=== PATIENT | female | born 1975 | race Caucasian/White ===

== ENCOUNTER 2017-01-20 10:19 | Emergency (ER) | payer OTHER ==
[2017-01-20 10:24] VITALS: BP 123/72; PULSE 96; TEMP 98; BMI 31.8
[2017-01-20] MEDS ORDERED: diazePAM 5 MG TABLET PO ONE (10:46)
[2017-01-20] MEDS ORDERED: IBUPROFEN 400 MG TABLET (FP) PO ONE ×2 (10:46→10:47)
[2017-01-20] MEDS ORDERED: diazePAM 5 MG TABLET ONE (10:47)
--- NOTE | 2017-01-20 10:55 | PDOC ---
History of Present Illness - General Chief Complaint: Pain Stated Complaint: BACK PAIN Time Seen by Provider: 01/20/17 10:28 History Source: Patient - History of Present Illness Occurred: reports: this morning Severity: reports: severe Method of Injury: Yes: fall Past History - Past Medical History Allergies/Adverse Reactions: Allergies Allergy/AdvReac Type Severity Reaction Status Date / Time levofloxacin [From Levaquin] Allergy Intermediate Rash Verified 01/20/17 10:25 Home Medications: Ambulatory Orders Ibuprofen [Motrin -] 800 mg PO Q6H #30 tablet 01/20/17 Tramadol HCl 50 mg PO Q6H #15 tablet MDD 200 mg 01/20/17 Anemia: Yes Asthma: Yes Psychiatric Problems: Yes (depression) Suicide Attempt (Hx): No - Surgical History Abdominal Surgery: Yes (hernia) - Immunization History Immunization Up to Date: No - Psycho/Social/Smoking Cessation Hx Anxiety: No Suicidal Ideation: No Smoking History: Never smoked Have you smoked in the past 12 months: Yes Number of Cigarettes Smoked Daily: 2 Information on smoking cessation initiated: No 'Breaking Loose' booklet given: 02/05/16 Hx Alcohol Use: No Drug/Substance Use Hx: No Substance Use Type: None Hx Substance Use Treatment: No Trauma Specific PMHX - Complaint Specific PMHX Back Injury: Yes Neck Injury: Yes Review of Systems - Review of Systems Musculoskeletal: Yes: Back Pain. No: Neck Pain Neurological: No: Headache, Numbness, Weakness, Dizziness *Physical Exam - Vital Signs Last Vital Signs Temp Pulse Resp BP Pulse Ox 98 F 96 H 18 123/72 99 01/20/17 10:21 01/20/17 10:21 01/20/17 10:21 01/20/17 10:21 01/20/17 10:21 - Physical Exam General Appearance: Yes: Appropriately Dressed, Mild Distress HEENT: positive: Normal Voice Neck: positive: Supple Respiratory/Chest: negative: Respiratory Distress Gastrointestinal/Abdominal: positive: Soft. negative: Tender Musculoskeletal: positive: Vertebral Tenderness (to thoracic and lumbar sacral spine). negative: CVA Tenderness Extremity: positive: Normal Inspection Integumentary: positive: Dry, Warm Neurologic: positive: Fully Oriented, Alert, Normal Mood/Affect Medical Decision Making - Medical Decision Making 01/20/17 10:47 41 yo F, pre-DM, 41-year-old female, chronic LBP, here w/ worsening of pain after fall this am. Pt states she slipped in slower but was able to break fall and suffered no impact to her back but did hit head, no LOC, CHANG, dizziness, n/v and not on any blood thinners. Only c/o pain to thoracic and LS spine. No radiation of pain and no LE weakness, b/b incontinence or saddle anesthesia. Has not taken anything for pain. Pt appears mildly uncomfortable with reproducible tenderness to thoracic and lumbar sacral spine, no red flags at this time. Most likely musculoskeletal. Pain control in ED and reassess 01/20/17 11:56 Patient reports improvement in pain and currently stable for discharge *DC/Admit/Observation/Transfer Diagnosis at time of Disposition: Back injury Qualifiers: Encounter type: initial encounter Qualified Code(s): S39.92XA - Unspecified injury of lower back, initial encounter - Discharge Dispostion Disposition: HOME Condition at time of disposition: Improved - Prescriptions Prescriptions: Ibuprofen [Motrin -] 800 mg PO Q6H #30 tablet Tramadol HCl 50 mg PO Q6H #15 tablet MDD 200 mg - Patient Instructions Printed Discharge Instructions: Low Back Pain Additional Instructions: Take medication as directed and follow up with PMD
== END 2017-01-20 12:14 | disposition home or self-care (01) ==
LOC: JERFT 10:19
DX: S39.92XA Unspecified injury of lower back, initial encounter (principal); W18.2XXA Fall in (into) shower or empty bathtub, initial encounter; Y93.E1 Activity, personal bathing and showering; Y92.031 Bathroom in apartment as the place of occurrence of the external cause
CPT/HCPCS: 99281-25

== ENCOUNTER 2017-03-16 09:53 | Emergency (ER) | payer OTHER ==
[2017-03-16 09:58] VITALS: TEMP 97.7; BMI 33.6
--- NOTE | 2017-03-16 11:12 | PDOC ---
History of Present Illness - General History Source: Patient Exam Limitations: No Limitations - History of Present Illness Initial Comments: 03/16/17 11:34 The patient is a 42 year old female with a significant past medical history of pre-diabetes, asthma, anemia, depression, chronic left low back pain, chronic C- spine pain, and cigarette smoking, presenting to the Emergency Department with left chest tightness and back pain since yesterday. She reports that yesterday she began feeling a tightness in her chest when breathing, and difficulty breathing secondary to the tightness. She reports that today she has left sided chest pain, as well as left sided back pain, exacerbated by breathing or by lifting her left arm. She also reports heart palpitations. She states that she is a smoker, and is short of breath on exertion normally, though it is more exacerbated now. She admits to chronic left lower abdominal pain being followed by a gyno, as well as chronic C-spine pain being managed with injections. Her last injection was in September. She admits that she is prescribed oxycodone for her chronic back pain though she ran out of pills. The patient denies fever, cough, and chills. Patient denies urinary frequency, urgency, and dysuria. Patient denies headache, dizziness, and loss of consciousness. Patient denies diaphoresis. PCP: Dr. Hugo Myers Hx: every day cigarette smoker Surgical Hx: 3x last 2006 <Suzie Mccullough - Last Filed: 03/16/17 14:16> <Tutu Singh - Last Filed: 03/16/17 14:23> - General Chief Complaint: Chest Pain Stated Complaint: CHEST PAIN, BACK PAIN Time Seen by Provider: 03/16/17 11:09 Past History <Suzie Mccullough - Last Filed: 03/16/17 14:16> - Past Medical History Anemia: Yes Asthma: Yes Psychiatric Problems: Yes (depression) Suicide Attempt (Hx): No - Surgical History Abdominal Surgery: Yes (hernia) - Immunization History Immunization Up to Date: No - Psycho/Social/Smoking Cessation Hx Anxiety: No Suicidal Ideation: No Smoking History: Never smoked Have you smoked in the past 12 months: Yes Number of Cigarettes Smoked Daily: 2 'Breaking Loose' booklet given: 02/05/16 Hx Alcohol Use: No Drug/Substance Use Hx: No Substance Use Type: None Hx Substance Use Treatment: No <АлександрrosanaDavyTutu - Last Filed: 03/16/17 14:23> - Past Medical History Allergies/Adverse Reactions: Allergies Allergy/AdvReac Type Severity Reaction Status Date / Time levofloxacin [From Levaquin] Allergy Intermediate Rash Verified 03/16/17 09:58 Home Medications: Ambulatory Orders Oxycodone HCl/Acetaminophen [Percocet 5-325 mg Tablet] 1 - 2 tab PO Q6H PRN #10 tab MDD 8 03/16/17 Review of Systems - Review of Systems Constitutional: No: Chills, Fever HEENTM: No: Nose Congestion, Throat Pain Respiratory: Yes: Shortness of Breath, SOB with Exertion. No: Cough Cardiac (ROS): Yes: Chest Pain. No: Edema, Lightheadedness ABD/GI: Yes: Diarrhea, Vomiting : No: Dysuria, Frequency Musculoskeletal: Yes: Back Pain (chronic cervical radiculopathy), Muscle Pain All Other Systems: Reviewed and Negative <АлександрjuanDavy jacobsTutu - Last Filed: 03/16/17 14:23> *Physical Exam - Vital Signs Last Vital Signs Temp Pulse Resp BP Pulse Ox 97.7 F 101 H 20 141/72 99 03/16/17 09:55 03/16/17 09:55 03/16/17 09:55 03/16/17 09:55 03/16/17 09:55 - Physical Exam Comments: 03/16/17 11:37 GENERAL: The patient is awake, alert, and fully oriented, in no acute distress. HEAD: Normal with no signs of trauma. EYES: Pupils equal, round and reactive to light, extraocular movements intact, sclera anicteric, conjunctiva clear with no pallor. ENT: Ears normal, nares patent, oropharynx clear without exudates. Moist mucous membranes. NECK: Normal range of motion, supple without lymphadenopathy, JVD, or masses. LUNGS: Breath sounds equal, clear to auscultation bilaterally. No wheeze/ crackles. HEART: Regular rate and rhythm, normal S1 and S2 without murmur or rub. ABDOMEN: Discomfort to palpation at upper chest and back and around left shoulder. Chronic pain to left lateral abdomen to palpation but otherwise soft and nondistended. BS wnl. No guarding or rebound. No palpable masses. No hepatosplenomegaly. EXTREMITIES: Full ROM of upper extremities but painful. No pitting edema to lower extremities. No calf tenderness. No clubbing or cyanosis. No cords, erythema, or tenderness. NEUROLOGICAL: Cranial nerves II through XII grossly intact. Normal speech, normal gait. PSYCH: Normal mood, normal affect. SKIN: Warm, Dry, normal turgor, no rashes or lesions noted. <Suzie Mccullough - Last Filed: 03/16/17 14:16> - Vital Signs Last Vital Signs Temp Pulse Resp BP Pulse Ox 97.7 F 101 H 20 141/72 99 03/16/17 09:55 03/16/17 09:55 03/16/17 09:55 03/16/17 09:55 03/16/17 09:55 <Tutu Singh - Last Filed: 03/16/17 14:23> Heart Score/ECG Review #1 ECG reviewed & interpreted by me at: 12:16 General ECG Interpretation: Sinus Rhythm, Normal Rate (75), Normal Intervals ( LVH), No acute ischemic changes <Tutu Singh - Last Filed: 03/16/17 14:23> ED Treatment Course - LABORATORY CBC & Chemistry Diagram: 03/16/17 11:45 03/16/17 11:45 - RADIOLOGY Radiograph Interpretation: 03/16/17 14:16 Chest XRay As reviewed by Dr. Green IMPRESSION: Cardiac silhouette upper limits of normal size. <Suzie Mccullough - Last Filed: 03/16/17 14:16> - LABORATORY CBC & Chemistry Diagram: 03/16/17 11:45 03/16/17 11:45 <Tutu Singh - Last Filed: 03/16/17 14:23> Medical Decision Making - Medical Decision Making 03/16/17 11:28 A portion of this note was documented by scribe services under my direction. I have reviewed the details of the note, within reason, and agree with the documentation with the following case summary and management plan written by me. 42-year-old female presented diabetic, chronic cervical radiculopathy with occasional steroid injections last performed in September, baseline exertional dyspnea of 1 block presents with pleuritic left chest and upper back discomfort for one day, and an exacerbation of her otherwise chronic left low back pain in the setting of running out of her opiates. Vital signs normal. Bedside heart rate 88 with O2 sat 99% on room air Reproducible discomfort to palpation in the upper left chest and back, lung sounds are otherwise clear No leg edema or calf tenderness 42-year-old female with acute on chronic pain syndrome, also with pleuritic component. Has no clear risk factors or signs/symptoms of PE, would be considered low risk overall. Atypical for ACS, rule out infectious process. Labs including d-dimer Chest x-ray, EKG Pain control reassess 03/16/17 12:39 labs wnl, trop negative, baseline mild anemia. DDimer pending. Urine preg negative, CXR ordered. 03/16/17 13:50 d-dimer negative. awaiting cxr and dispo. Pain resolved after toradol, feels much better. 03/16/17 14:19 CXR clear. agrees with d/c plan, will fill 2d of her chronic meds before she can see her PCP. understands return criteria. <Tutu Singh - Last Filed: 03/16/17 14:23> *DC/Admit/Observation/Transfer - Attestations Scribe Attestion: 03/16/17 11:39 Documentation prepared by Suzie Mccullough, acting as medical interpreter for Tutu Singh MD. <Suzie Mccullough - Last Filed: 03/16/17 14:16> <Tutu Singh - Last Filed: 03/16/17 14:23> Diagnosis at time of Disposition: Atypical chest pain - Discharge Dispostion Disposition: HOME Condition at time of disposition: Improved - Prescriptions Prescriptions: Oxycodone HCl/Acetaminophen [Percocet 5-325 mg Tablet] 1 - 2 tab PO Q6H PRN #10 tab MDD 8 PRN Reason: Pain - Referrals Referrals: Mart Arias MD [Primary Care Provider] - - Patient Instructions Printed Discharge Instructions: DI for Atypical Chest Pain Additional Instructions: Activity as tolerated. Stay hydrated. Tylenol 1000 mg every 8 hours and/or ibuprofen 600 mg every 8 hours as needed for moderate pain. percocet as prescribed as needed for severe pain. Continue your medications as previously prescribed by your physician. You should follow up with your primary doctor as soon as possible regarding today's emergency department visit. Return to the emergency department for any new or concerning symptoms, particularly persistent or worsening pain, difficulty breathing, fever/chills.
[2017-03-16] MEDS ORDERED: SODIUM CHLORIDE 1,000 ML IV ONE (11:26)
[2017-03-16] MEDS ORDERED: morphine CARPU-JECT 4 MG/1 ML DISP.SYRIN IVPUSH ONE (11:26)
[2017-03-16] MEDS ORDERED: morphine CARPU-JECT 4 MG/1 ML DISP.SYRIN ONE (11:42)
[2017-03-16 11:54] LABS: BASOPHIL 0.5 % (0-2.0); EOSINOPHIL 0.5 % (0-4.5); MCH 22.6 pg (25.7-33.7); MCHC 31.3 g/dl (32.0-36.0); MEAN PLT VOLUME 8.1 fl (7.5-11.1); NEUTROPHILS 77.9 % (42.8-82.8); PLATELET COUNT 273 K/MM3 (134-434); RDW 17.1 % (11.6-15.6); WHITE BLOOD COUNT 12.1 K/mm3 (4.0-10.0)
[2017-03-16 11:57] LABS: URINE APPEARANCE CLEAR; URINE BILIRUBIN NEGATIVE (NEGATIVE); URINE BLOOD NEGATIVE (NEGATIVE); URINE COLOR LTYELLOW; URINE GLUCOSE (UA) NEGATIVE (NEGATIVE); URINE KETONE NEGATIVE (NEGATIVE); URINE LEUK ESTERASE NEGATIVE (NEGATIVE); URINE NITRITE NEGATIVE (NEGATIVE); URINE PROTEIN NEGATIVE (NEGATIVE); URINE UROBILINOGEN NEGATIVE E.U./dl (0.2-1.0)
[2017-03-16] MEDS ORDERED: KETOROLAC TROMETHAMINE 30 MG/1 ML VIAL IVPUSH ONE (12:02)
[2017-03-16 12:20] LABS: INR 0.99 (0.82-1.09)
[2017-03-16 12:23] LABS: ALBUMIN 3.7 g/dl (3.4-5.0); ANION GAP 7 (8-16); BILIRUBIN,TOTAL 0.2 mg/dL (0.2-1.0); CALCIUM 9.1 mg/dL (8.5-10.1); CO2 27 mmol/L (21-32); COCKROFT - GAULT 145.3415; CREATININE 0.7 mg/dL (0.55-1.02); GLUCOSE,RANDOM 95 mg/dL (74-106); MAGNESIUM 2.4 mg/dL (1.8-2.4); SGOT/AST 22 U/L (15-37); SGPT/ALT 38 U/L (12-78); TOT PROT 7.4 g/dl (6.4-8.2)
[2017-03-16 12:25] LABS: ALK PHOS 84 U/L (45-117); TROPONIN I < 0.02 ng/ml (0.00-0.05)
[2017-03-16] MEDS ORDERED: KETOROLAC TROMETHAMINE 30 MG/1 ML VIAL ONE (12:52)
[2017-03-16 13:00] LABS: D-DIMER < 200 ng/ml (<200-235)
--- NOTE | 2017-03-16 14:43 | EKG ---
Test Reason : Blood Pressure : / mmHG Vent. Rate : 075 BPM Atrial Rate : 075 BPM P-R Int : 166 ms QRS Dur : 076 ms QT Int : 386 ms P-R-T Axes : 027 -08 042 degrees QTc Int : 431 ms NORMAL SINUS RHYTHM VOLTAGE CRITERIA FOR LEFT VENTRICULAR HYPERTROPHY ABNORMAL ECG WHEN COMPARED WITH ECG OF 19-OCT-2016 16:34, NO SIGNIFICANT CHANGE WAS FOUND Confirmed by ANGELA ALEXIS MD ([id number]) on 03/16/2017 2:42:45 PM Referred By: Confirmed By:ANGELA ALEXIS MD
[2017-03-16 15:09] VITALS: BP 135/70; PULSE 90
== END 2017-03-16 15:09 | disposition home or self-care (01) ==
LOC: JER 09:53
PROC: 3E033NZ Introduction of Analgesics, Hypnotics, Sedatives into Peripheral Vein, Percutaneous Approach (ICD-10-PCS; principal; 2017-03-16)
PROC: 3E0333Z Introduction of Anti-inflammatory into Peripheral Vein, Percutaneous Approach (ICD-10-PCS; 2017-03-16)
DX: R07.89 Other chest pain (principal); E22.9 Hyperfunction of pituitary gland, unspecified; F51.9 Sleep disorder not due to a substance or known physiological condition, unspecified; F41.9 Anxiety disorder, unspecified; G89.29 Other chronic pain
CPT/HCPCS: 36415; 71020-TC; 80053; 81003; 82550; 83735; 84484; 84703; 85025; 85379; 85610; 93005; 93010; 96374; 96375; 99284-25

== ENCOUNTER 2017-05-14 17:11 | Emergency (ER) | payer OTHER ==
[2017-05-14 17:42] VITALS: BMI 33.6
--- NOTE | 2017-05-14 18:14 | PDOC ---
History of Present Illness - General History Source: Patient, Old Records Exam Limitations: No Limitations <AndrewEvaristoYuliya - Last Filed: 05/14/17 21:04> - General History Source: Patient, Spouse Exam Limitations: No Limitations - History of Present Illness Initial Comments: Patient is a 42 year old female with history of asthma and chronic back pain who presents complaining of 9 days of dizziness and vomiting and 5 days of watery diarrhea that began after starting IV iron treatment for anemia. Patient is scheduled to have an hysterectomy and is being treated for anemia with IV iron that first began 10 days ago. The day following her first injection she claims she became nauseous and started vomiting 3-4x per day. Vomit was non bloody and yellow. Epigastric pain started at the same time which was sharp and constant. Patient states she has not been able to eat or drink anything without vomiting. 5 days ago the patient developed diarrhea. Patient also endorsed a fever 2 days ago and was denied her iron injection due to her condition and was referred to the ED but did not go until her convinced her to come in today. <Amador Bledsoe - Last Filed: 05/15/17 06:19> - General Chief Complaint: Lightheaded Stated Complaint: DIZZINESS Time Seen by Provider: 05/14/17 17:32 Past History <Yuliya Morales - Last Filed: 05/14/17 21:04> - Past Medical History Anemia: Yes Asthma: Yes Psychiatric Problems: Yes (depression) Suicide Attempt (Hx): No - Surgical History Abdominal Surgery: Yes (hernia) - Immunization History Immunization Up to Date: No - Psycho/Social/Smoking Cessation Hx Anxiety: No Suicidal Ideation: No Smoking History: Former smoker Have you smoked in the past 12 months: Yes Number of Cigarettes Smoked Daily: 10 If you are a former smoker, when did you quit?: last week Information on smoking cessation initiated: No 'Breaking Loose' booklet given: 02/05/16 Hx Alcohol Use: No Drug/Substance Use Hx: No Substance Use Type: None Hx Substance Use Treatment: No <Amador Bledsoe - Last Filed: 05/15/17 06:19> - Past Medical History Allergies/Adverse Reactions: Allergies Allergy/AdvReac Type Severity Reaction Status Date / Time levofloxacin [From Levaquin] Allergy Intermediate Rash Verified 05/14/17 17:42 Home Medications: Ambulatory Orders NK [No Known Home Medication] 05/14/17 Review of Systems - Review of Systems Able to Perform ROS?: Yes Is the patient limited Grenadian proficient: Yes Constitutional: Yes: Chills, Fever, Loss of Appetite, Malaise, Weakness HEENTM: Yes: Blurred Vision Respiratory: Yes: Shortness of Breath (Mild) Cardiac (ROS): No: Chest Pain ABD/GI: Yes: Diarrhea, Nausea, Poor Appetite, Poor Fluid Intake, Vomiting, Abdominal cramping. No: Blood Streaked Bowels : No: Dysuria Neurological: Yes: Headache, Dizziness All Other Systems: Reviewed and Negative <Amador Bledsoe - Last Filed: 05/15/17 06:19> *Physical Exam - Vital Signs Last Vital Signs Temp Pulse Resp BP Pulse Ox 98.4 F 72 16 139/92 99 05/14/17 17:37 05/14/17 17:37 05/14/17 17:37 05/14/17 17:37 05/14/17 17:37 <Yuliya Morales - Last Filed: 05/14/17 21:04> - Vital Signs Last Vital Signs Temp Pulse Resp BP Pulse Ox 98.4 F 72 16 139/92 99 05/14/17 17:37 05/14/17 17:37 05/14/17 17:37 05/14/17 17:37 05/14/17 17:37 - Physical Exam General Appearance: Yes: Nourished, Mild Distress HEENT: positive: EOMI, NEHA, Normal ENT Inspection, Pharynx Normal Neck: positive: Trachea midline, Supple Respiratory/Chest: positive: Lungs Clear, Normal Breath Sounds. negative: Chest Tender, Respiratory Distress, Rales, Rhonchi, Stridor, Wheezing Cardiovascular: positive: Regular Rhythm, Regular Rate Gastrointestinal/Abdominal: positive: Normal Bowel Sounds, Tender (RUQ/ Epigastric on deep palpation), Other (two 1cm round robison to LLQ ). negative: Distended, Guarding, Rebound Integumentary: positive: Normal Color, Dry, Warm Neurologic: positive: meat supervisor II-XII NML intact, Fully Oriented, Alert, Motor Strength 5/5 <Amador Bledsoe - Last Filed: 05/15/17 06:19> ED Treatment Course - LABORATORY CBC & Chemistry Diagram: 05/14/17 19:25 05/14/17 18:48 - ADDITIONAL ORDERS Additional order review: Laboratory Results 05/14/17 05/14/17 19:27 18:48 Sodium 142 Potassium 4.3 Chloride 105 Carbon Dioxide 28 Anion Gap 9 BUN 12 Creatinine 0.7 Creat Clearance w eGFR > 60 Random Glucose 95 Calcium 9.6 Total Bilirubin 0.2 AST 25 ALT 39 Alkaline Phosphatase 89 Creatine Kinase 62 Troponin I < 0.02 Total Protein 7.4 Albumin 3.8 Lipase 112 Urine Color Ltyellow Urine Appearance Clear Urine pH 6.0 Urine Protein Negative Urine Glucose (UA) Negative Urine Ketones Negative Urine Blood Negative Urine Nitrite Negative Urine Bilirubin Negative Urine Urobilinogen Negative Ur Leukocyte Esterase Negative Urine HCG, Qual Negative 05/14/17 19:25 RBC 4.74 MCV 72.4 L MCHC 31.7 L RDW 18.6 H MPV 8.5 Neutrophils % 75.1 Lymphocytes % 19.2 D Monocytes % 4.1 Eosinophils % 1.0 D Basophils % 0.6 - Medications Given in the ED: ED Medications Discontinued Medications Generic Name Dose Route Start Last Admin Trade Name Rafaq PRN Reason Stop Dose Admin Acetaminophen 650 mg 05/14/17 18:56 05/14/17 19:25 Tylenol - PO 05/14/17 18:57 650 mg ONCE ONE Administration Sodium Chloride 1,000 mls @ 1,000 mls/hr 05/14/17 18:50 05/14/17 19:25 Normal Saline - IV 05/14/17 19:49 1,000 mls/hr ASDIR STA Administration Ondansetron HCl 4 mg 05/14/17 18:55 05/14/17 19:25 Zofran Injection IVPUSH 05/14/17 18:56 4 mg ONCE ONE Administration <Yuliya Morales - Last Filed: 05/14/17 21:04> - LABORATORY CBC & Chemistry Diagram: 05/14/17 19:25 05/14/17 18:48 <Amador Bledsoe - Last Filed: 05/15/17 06:19> Medical Decision Making - Medical Decision Making Patient is a 42 year old female presenting with dizziness, nausea, vomiting, diarrhea and epigastric pain for over a week with reported anemia and poor food and fluid intake. Ddx, PUD, Anemia, Gastritis, Colitis, , Pancreatitis, SBO Basic blood and metabolic tests to evaluate for infection, dehydration, anemia Provide fluids, nausea and pain management, basic screen for , Pancreatic or cardiac itiology. PO challenge 05/14/17 19:22 Patient is stable, waiting return of labs Patient care was transferred to Dr. Gasca <Amador Bledsoe - Last Filed: 05/15/17 06:19> *DC/Admit/Observation/Transfer - Discharge Dispostion Admit: No <Yuliya Morales - Last Filed: 05/14/17 21:04> - Attestations Physician Attestion: 05/15/17 06:19 I, Dr. Amador Bledsoe, attest that this document has been prepared under my direction and personally reviewed by me in its entirety. I further attest, that it accurately reflects all work, treatment, procedures and medical decision -making performed by me. <Amador Bledsoe - Last Filed: 05/15/17 06:19> Diagnosis at time of Disposition: Abdominal pain, Nausea vomiting and diarrhea - Discharge Dispostion Disposition: HOME Condition at time of disposition: Stable - Referrals Referrals: Mart Arias MD [Primary Care Provider] - - Patient Instructions Printed Discharge Instructions: DI for Abdominal Pain-Adult Additional Instructions: Please follow-up with your primary care physician as scheduled on Tuesday. return to the ED if your symptoms persist, worsen or new symptoms arise.
[2017-05-14] MEDS ORDERED: SODIUM CHLORIDE 1,000 ML IV STA (18:50)
[2017-05-14] MEDS ORDERED: ONDANSETRON 4 MG/2 ML VIAL IVPUSH ONE (18:55)
[2017-05-14] MEDS ORDERED: ACETAMINOPHEN 325 MG TABLET (FP) PO ONE (18:56)
[2017-05-14] MEDS ORDERED: ONDANSETRON 4 MG/2 ML VIAL ONE (19:05)
[2017-05-14] MEDS ORDERED: ACETAMINOPHEN 325 MG TABLET (FP) ONE (19:05)
[2017-05-14 19:52] LABS: URINE APPEARANCE CLEAR; URINE BILIRUBIN NEGATIVE (NEGATIVE); URINE BLOOD NEGATIVE (NEGATIVE); URINE COLOR LTYELLOW; URINE GLUCOSE (UA) NEGATIVE (NEGATIVE); URINE KETONE NEGATIVE (NEGATIVE); URINE LEUK ESTERASE NEGATIVE (NEGATIVE); URINE NITRITE NEGATIVE (NEGATIVE); URINE PROTEIN NEGATIVE (NEGATIVE); URINE UROBILINOGEN NEGATIVE mg/dL (0.2-1.0)
[2017-05-14 19:57] LABS: BASOPHIL 0.6 % (0-2.0); MCHC 31.7 g/dl (32.0-36.0); MEAN CELL VOLUME 72.4 fl (80-96); MEAN PLT VOLUME 8.5 fl (7.5-11.1); NEUTROPHILS 75.1 % (42.8-82.8); PLATELET COUNT 277 K/MM3 (134-434); RDW 18.6 % (11.6-15.6); WHITE BLOOD COUNT 10.7 K/mm3 (4.0-10.0)
--- NOTE | 2017-05-14 20:12 | PDOC ---
Attending Attestation - Resident Resident Name: Stevenson,Jon - ED Attending Attestation I have performed the following: I have examined & evaluated the patient, The case was reviewed & discussed with the resident, I agree w/resident's findings & plan, Exceptions are as noted - HPI HPI: 05/14/17 20:10 Agree with the resident's HPI as documented in the electronic medical record. - Physicial Exam PE: 05/14/17 20:11 Agree with the resident's physical examination as documented in the electronic medical record. - Medical Decision Making 05/14/17 20:11 42-year-old female with one week history of diffuse abdominal pain and nausea vomiting and diarrhea. Differential diagnosis includes but is not limited to: Gastroenteritis, enteritis, colitis, diverticulitis, dehydration, electrolyte abnormality, toxic/metabolic derangement. Plan: 1. Labs 2. IV fluids for hydration 3. Antiemetics and pain management 4. Observe and reevaluate 05/14/17 21:06 Addendum: Labs were reviewed and are noted in the EMR. The patient has tolerated PO without nausea or vomiting. The patient was re-evaluated and she is feeling improved and wants to go home. Will discharge home, follow-up with PCP (patient has an appointment scheduled this tuesday). I have advised the patient to reurn to the ED if her Sx persist, worsen or new Sx arise.
[2017-05-14 20:29] LABS: ALBUMIN 3.8 g/dl (3.4-5.0); ANION GAP 9 (8-16); BILIRUBIN,TOTAL 0.2 mg/dL (0.2-1.0); CALCIUM 9.6 mg/dL (8.5-10.1); CO2 28 mmol/L (21-32); CREATININE 0.7 mg/dL (0.55-1.02); GLUCOSE,RANDOM 95 mg/dL (74-106); SGOT/AST 25 U/L (15-37); SGPT/ALT 39 U/L (12-78); TOT PROT 7.4 g/dl (6.4-8.2)
[2017-05-14 20:31] LABS: ALK PHOS 89 U/L (45-117); TROPONIN I < 0.02 ng/ml (0.00-0.05)
[2017-05-14 21:14] VITALS: BP 134/88; PULSE 84; TEMP 98.7
--- NOTE | 2017-05-15 13:36 | EKG ---
Test Reason : Blood Pressure : / mmHG Vent. Rate : 071 BPM Atrial Rate : 071 BPM P-R Int : 172 ms QRS Dur : 078 ms QT Int : 386 ms P-R-T Axes : 027 -02 035 degrees QTc Int : 419 ms NORMAL SINUS RHYTHM MODERATE VOLTAGE CRITERIA FOR LVH, MAY BE NORMAL VARIANT BORDERLINE ECG WHEN COMPARED WITH ECG OF 16-MAR-2017 12:16, NO SIGNIFICANT CHANGE WAS FOUND Confirmed by VANESA MCKENZIE, ANGELA ([id number]) on 05/15/2017 1:35:49 PM Referred By: Confirmed By:ANGELA ALEXIS MD
== END 2017-05-14 21:14 | disposition home or self-care (01) ==
LOC: JER 17:11
PROC: 3E033GC Introduction of Other Therapeutic Substance into Peripheral Vein, Percutaneous Approach (ICD-10-PCS; principal; 2017-05-14)
DX: R10.13 Epigastric pain (principal); R11.2 Nausea with vomiting, unspecified; D64.89 Other specified anemias; J45.909 Unspecified asthma, uncomplicated
CPT/HCPCS: 36415; 80053; 81003; 82550; 83690; 84484; 84703; 85025; 93005; 93010; 96374; 99285-25

== ENCOUNTER 2018-03-23 10:10 | Emergency (ER) | payer OTHER ==
[2018-03-23 10:22] VITALS: BP 135/95; PULSE 84; TEMP 98.4; BMI 34.7
[2018-03-23] MEDS ORDERED: KETOROLAC TROMETHAMINE 60 MG/2 ML VIAL IM ONE (10:55)
[2018-03-23] MEDS ORDERED: IBUPROFEN 400 MG TABLET (FP) PO ONE ×2 (11:02→11:04)
--- NOTE | 2018-03-23 11:02 | PDOC ---
History of Present Illness - General Chief Complaint: Pain Stated Complaint: RT SHOULDER/ ARM PAIN Time Seen by Provider: 03/23/18 10:49 History Source: Patient Exam Limitations: No Limitations - History of Present Illness Initial Comments: 03/23/18 10:57 43 yr female with c/o chronic neck pain for 2 weeks woke up 3 days ago withpain and stiffness to neck pt had a prednisone injection that pt states made it worse. no fever no cough no head injury or trauma Past History - Past Medical History Allergies/Adverse Reactions: Allergies Allergy/AdvReac Type Severity Reaction Status Date / Time levofloxacin [From Levaquin] Allergy Intermediate Rash Verified 03/23/18 10:19 Home Medications: Ambulatory Orders Diazepam [Valium] 5 mg PO Q8H PRN #10 tablet MDD 20mg 03/23/18 Anemia: Yes Asthma: Yes COPD: No Psychiatric Problems: Yes (depression) - Surgical History Abdominal Surgery: Yes (hernia) - Immunization History Immunization Up to Date: No - Suicide/Smoking/Psychosocial Hx Smoking History: Former smoker Have you smoked in the past 12 months: Yes Number of Cigarettes Smoked Daily: 2 If you are a former smoker, when did you quit?: last week Information on smoking cessation initiated: Yes 'Breaking Loose' booklet given: 03/23/18 Hx Alcohol Use: No Drug/Substance Use Hx: No Substance Use Type: None Hx Substance Use Treatment: No Trauma Specific PMHX - Complaint Specific PMHX Back Injury: Yes Neck Injury: Yes Review of Systems - Review of Systems Able to Perform ROS?: Yes Is the patient limited Divehi proficient: No Constitutional: No: Symptoms Reported HEENTM: No: Symptoms Reported Respiratory: No: Symptoms reported Cardiac (ROS): No: Symptoms Reported ABD/GI: No: Symptoms Reported : No: Symptoms Reported Musculoskeletal: Yes: Symptoms Reported *Physical Exam - Vital Signs Last Vital Signs Temp Pulse Resp BP Pulse Ox 98.4 F 84 19 135/95 97 03/23/18 10:19 03/23/18 10:19 03/23/18 10:19 03/23/18 10:19 03/23/18 10:19 - Physical Exam General Appearance: Yes: Nourished, Appropriately Dressed HEENT: positive: EOMI, NEHA, Normal ENT Inspection, TMs Normal, Pharynx Normal Neck: positive: Supple. negative: Tender Respiratory/Chest: positive: Lungs Clear, Normal Breath Sounds. negative: Chest Tender Cardiovascular: positive: Regular Rhythm, Regular Rate Musculoskeletal: positive: Normal Inspection, Decreased Range of Motion, Muscle Spasm (right neck spasm, tender to touch decreased ROM of the neck due to pain, neg spinal tenderness), Other. negative: Vertebral Tenderness Extremity: positive: Normal Capillary Refill, Normal Inspection, Normal Range of Motion Integumentary: positive: Normal Color, Dry, Warm Neurologic: positive: Fully Oriented, Alert, Normal Mood/Affect, Normal Response , Motor Strength 5/5 Medical Decision Making - Medical Decision Making 03/23/18 11:00 cc: neck pain worse with movement of the arm and neck neg numbness or tingling no fever no headache pt refused toradol injection will give motrin and dc home with muscle relaxants *DC/Admit/Observation/Transfer Diagnosis at time of Disposition: Chronic neck pain - Discharge Dispostion Disposition: HOME Condition at time of disposition: Good - Prescriptions Prescriptions: Diazepam [Valium] 5 mg PO Q8H PRN #10 tablet MDD 20mg PRN Reason: Muscle Spasms - Referrals Referrals: Mart Arias MD [Primary Care Provider] - - Patient Instructions Additional Instructions: apply ice every 2hrs for 20 minutes take Valium for muscle spasm as directed take Aleve (over the counter ) or ibuprofen as directed follow with your doctor for further care - Post Discharge Activity
== END 2018-03-23 11:06 | disposition home or self-care (01) ==
LOC: JERFT 10:10
DX: M54.2 Cervicalgia (principal); G89.29 Other chronic pain; Z87.891 Personal history of nicotine dependence
CPT/HCPCS: 99281-25

== ENCOUNTER 2018-05-15 04:29 | Emergency (ER) | payer OTHER ==
[2018-05-15] MEDS ORDERED: ONDANSETRON 4 MG/2 ML VIAL IVPUSH ONE (04:39)
[2018-05-15] MEDS ORDERED: KETOROLAC TROMETHAMINE 30 MG/1 ML VIAL IVPUSH ONE (04:40)
[2018-05-15 04:41] VITALS: TEMP 98.2; BMI 34.3
[2018-05-15] MEDS ORDERED: ONDANSETRON 4 MG/2 ML VIAL ONE (04:47)
[2018-05-15] MEDS ORDERED: KETOROLAC TROMETHAMINE 30 MG/1 ML VIAL ONE (04:47)
[2018-05-15 04:56] LABS: BASO % 0.6 % (0-2.0); EOS % 2.1 % (0-4.5); HEMATOCRIT 39.3 % (32.4-45.2); HEMOGLOBIN 13.4 GM/dL (10.7-15.3); LYMPH % 24.5 % (8-40); MCH 27.7 pg (25.7-33.7); MCHC 34.1 g/dl (32.0-36.0); MEAN PLT VOLUME 8.1 fl (7.5-11.1); MONO % 4.3 % (3.8-10.2); NEUT % 68.5 % (42.8-82.8); PLATELET COUNT 252 K/MM3 (134-434); RBC 4.85 M/mm3 (3.60-5.2); RDW 15.2 % (11.6-15.6)
[2018-05-15] MEDS ORDERED: SODIUM CHLORIDE 0.9% 1000 ML INFUS.BAG IV ONE (05:00)
[2018-05-15] MEDS ORDERED: morphine CARPU-JECT 4 MG/1 ML DISP.SYRIN IVPUSH ONE ×2 (05:16→08:55)
[2018-05-15] MEDS ORDERED: morphine SULFATE 4 MG/ML VIAL ONE ×2 (05:18→08:58)
--- NOTE | 2018-05-15 05:25 | PDOC ---
History of Present Illness - General Chief Complaint: Pain Stated Complaint: ABDOMINAL PAIN Time Seen by Provider: 05/15/18 04:36 History Source: Patient Exam Limitations: No Limitations - History of Present Illness Initial Comments: 05/15/18 05:20 The patient is a 43F with a PMH of pre-diabetes, asthma, anemia, depression, chronic left low back pain, chronic C-spine pain who presents to the ER with complaints of L flank pain. The patient states that her pain started around 2100 last night and then suddenly woke her up about 1 hour ago. She describes a sharp, squeezing pain which starts in her LLQ and flank and radiates down to her pubic area. She also admits to dysuria without any vaginal discharge. She denies fever, chills, CP, SOB. She admits to nausea and vomiting NBNB. She has had a hysterectomy in October for fibroids. Past History - Past Medical History Allergies/Adverse Reactions: Allergies Allergy/AdvReac Type Severity Reaction Status Date / Time levofloxacin [From Levaquin] Allergy Intermediate Rash Verified 05/15/18 04:41 Home Medications: Ambulatory Orders Acetaminophen 500 mg PO TID #90 tablet 04/18/18 Gabapentin 100 mg PO TID #63 capsule 04/18/18 Tramadol HCl [Ultram] 50 mg PO QID PRN #28 tablet MDD 4 04/18/18 Anemia: Yes Asthma: Yes Cancer: No Cardiac Disorders: No COPD: No Diabetes: Yes (prediabetes) GI Disorders: No Disorders: No HTN: No Hypercholesterolemia: No Liver Disease: No Psychiatric Problems: Yes (depression) Seizures: No Thyroid Disease: No - Surgical History Abdominal Surgery: Yes (hernia) - Immunization History Immunization Up to Date: No - Suicide/Smoking/Psychosocial Hx Smoking History: Never smoked Have you smoked in the past 12 months: No Number of Cigarettes Smoked Daily: 2 If you are a former smoker, when did you quit?: last week Information on smoking cessation initiated: No 'Breaking Loose' booklet given: 03/23/18 Hx Alcohol Use: No Drug/Substance Use Hx: No Substance Use Type: None Hx Substance Use Treatment: No Review of Systems - Review of Systems Able to Perform ROS?: Yes Comments:: 05/15/18 05:22 GENERAL/CONSTITUTIONAL: No fever or chills. No weakness. HEAD, EYES, EARS, NOSE AND THROAT: No change in vision. No ear pain or discharge. No sore throat. CARDIOVASCULAR: No chest pain, palpitations, or lightheadedness. RESPIRATORY: No cough, wheezing, shortness of breath, or hemoptysis. GASTROINTESTINAL: Positive for nausea and vomiting. No diarrhea, constipation, or abdominal pain. GENITOURINARY: Positive for L flank pain and dysuria. No frequency, hematuria, or change in urination. MUSCULOSKELETAL: No joint or muscle swelling or pain. No neck or back pain. SKIN: No rash or lesions. NEUROLOGIC: No headache, numbness, tingling, weakness, loss of consciousness, or change in strength/sensation. ENDOCRINE: No increased thirst. No abnormal weight change. HEMATOLOGIC/LYMPHATIC: No anemia, easy bleeding, or history of blood clots. ALLERGIC/IMMUNOLOGIC: No hives or skin allergy. Is the patient limited Indonesian proficient: No *Physical Exam - Vital Signs Last Vital Signs Temp Pulse Resp BP Pulse Ox 98.2 F 97 H 19 140/91 99 05/15/18 04:34 05/15/18 04:34 05/15/18 04:34 05/15/18 04:34 05/15/18 04:34 - Physical Exam Comments: 05/15/18 05:23 GENERAL: Well developed, well nourished. Awake and alert. In moderate distress. HEENT: Normocephalic, atraumatic. Hearing grossly normal. Moist mucous membranes. PERRLA, EOMI. No conjunctival pallor. Sclera are non-icteric. NECK: Supple. Full ROM. No JVD. CARDIOVASCULAR: Regular rate and rhythm. No murmurs, rubs, or gallops. PULMONARY: No evidence of respiratory distress. Lungs clear to auscultation bilaterally. No wheezing, rales or rhonchi. ABDOMINAL: Soft. TTP over suprapubic abdomen. Non-distended. No rebound or guarding. GENITOURINARY: No CVA tenderness bilaterally. MUSCULOSKELETAL: Normal range of motion at all joints. No bony deformities or tenderness. EXTREMITIES: No cyanosis. No clubbing. No edema. No calf tenderness or swelling. SKIN: Warm and dry. Normal capillary refill. No rashes. No jaundice. NEUROLOGICAL: Alert, awake, appropriate. Cranial nerves 2-12 intact. Normal speech. Gait is normal without ataxia. PSYCHIATRIC: Cooperative. Good eye contact. Appropriate mood and affect. ED Treatment Course - LABORATORY CBC & Chemistry Diagram: 05/15/18 04:45 05/15/18 04:45 - ADDITIONAL ORDERS Additional order review: Laboratory Results 05/15/18 04:45 WBC 9.0 RBC 4.85 Hgb 13.4 Hct 39.3 MCV 81.0 MCH 27.7 MCHC 34.1 RDW 15.2 Plt Count 252 MPV 8.1 Absolute Neuts (auto) 6.2 Neutrophils % 68.5 Lymphocytes % 24.5 D Monocytes % 4.3 Eosinophils % 2.1 D Basophils % 0.6 Nucleated RBC % 0 05/15/18 04:45 RBC 4.85 MCV 81.0 MCHC 34.1 RDW 15.2 MPV 8.1 Neutrophils % 68.5 Lymphocytes % 24.5 D Monocytes % 4.3 Eosinophils % 2.1 D Basophils % 0.6 - RADIOLOGY Radiology Studies Ordered: Category Date Time Status ABDOMEN & PELVIS CT W/O CONTR [CT] Stat CT Scan 05/15/18 04:51 Ordered - Medications Given in the ED: ED Medications Discontinued Medications Generic Name Dose Route Start Last Admin Trade Name Freq PRN Reason Stop Dose Admin Ketorolac Tromethamine 30 mg 05/15/18 04:40 05/15/18 04:51 Toradol Injection - IVPUSH 05/15/18 04:41 30 mg ONCE ONE Administration Ondansetron HCl 4 mg 05/15/18 04:39 05/15/18 04:51 Zofran Injection IVPUSH 05/15/18 04:40 4 mg ONCE ONE Administration Sodium Chloride 1,000 ml 05/15/18 05:00 05/15/18 05:05 Normal Saline - IV 05/15/18 05:01 1,000 ml ONCE ONE Administration Medical Decision Making - Medical Decision Making 05/15/18 05:24 The patient is a 43F with an extensive PMH of musculoskeletal back pain who presents with acute onset L flank pain which radiates to her suprapubic abdomen , likely 2/2 to nephrolithiasis. She denies any history of nephrolithiasis and hematuria. Giving pain control and fluids and will order CT to r/o obstructive nephropathy and to evaluate size of stone, if any. 05/15/18 05:54 CBC and CMP WNL, including Cr. Pending urine. 05/15/18 06:[address] still pending. Pt's pain is more controlled. Pt laying down comfortably. 05/15/18 07:04 Pt signed out to Dr. Peoples. *DC/Admit/Observation/Transfer - Discharge Dispostion Condition at time of disposition: Fair - Referrals Referrals: Mart Arias MD [Primary Care Provider] - - Patient Instructions - Post Discharge Activity
[2018-05-15 05:30] LABS: ALBUMIN 3.7 g/dl (3.4-5.0); ANION GAP 11 (8-16); BILIRUBIN,TOTAL 0.2 mg/dL (0.2-1.0); BLOOD UREA NITROGEN 13 mg/dL (7-18); CALCIUM 8.9 mg/dL (8.5-10.1); CHLORIDE 110 mmol/L (98-107); CO2 22 mmol/L (21-32); CREATININE 0.9 mg/dL (0.55-1.02); GLUCOSE,RANDOM 121 mg/dL (74-106); LIPASE 104 U/L (73-393); SGPT/ALT 44 U/L (12-78); SODIUM 143 mmol/L (136-145)
[2018-05-15 05:33] LABS: ALK PHOS 84 U/L (45-117); SGOT/AST 25 U/L (15-37); TOT PROT 7.3 g/dl (6.4-8.2)
--- NOTE | 2018-05-15 05:57 | PDOC ---
Attending Attestation - HPI HPI: 05/15/18 06:15 Patient is a 43 year old female with a significant past medical history of pre- diabetes, asthma, anemia, depression, chronic left low back pain, chronic C- spine pain, who presents to the ED with complaints of left flank pain that began at 9pm last night. Patient reports left flank pain began suddenly last night, waking her from her sleep 1 hour prior to ED arrival. She reports left flank pain to be a sharp squeezing type pain that she states radiates to her superpubic region. Patient reports experiencing associated symptoms of urinary retention secondary to pain. She reports taking tylenol for pain with no relief prompting her to come into the ED for further evaluation. Patient reports having an appointment with neurology today due to experiencing episode of right arm total numbness recently. Denies chest pain, Sob. Denies nausea, vomiting. Denies trauma to affected area. Denies contact with sick individuals, out of state traveling. Allergies: Levofloxacin. Social history: No smoking.No alcohol. No illicit drugs. Surgical history: Surgery in October 2017 PMD: Dr. Arias - Physicial Exam PE: 05/15/18 07:02 GENERAL: Awake, alert, and fully oriented, in no acute distress HEAD: No signs of trauma EYES: PERRLA, EOMI, sclera anicteric, conjunctiva clear ENT: Auricles normal inspection, hearing grossly normal, nares patent, oropharynx clear without exudates. Moist mucosa NECK: Normal ROM, supple, no lymphadenopathy, JVD, or masses LUNGS: Breath sounds equal, clear to auscultation bilaterally. No wheezes, and no crackles HEART: Regular rate and rhythm, normal S1 and S2, no murmurs, rubs or gallops ABDOMEN: +Left abdominal pain. +Gassy Soft, nontender, normoactive bowel sounds. No guarding, no rebound. No masses EXTREMITIES: Normal range of motion, no edema. No clubbing or cyanosis. No cords, erythema, or tenderness MUSCULOSKELETAL: +Left flank pain. NEUROLOGICAL: Cranial nerves II through XII grossly intact. Normal speech, normal gait SKIN: Warm, Dry, normal turgor, no rashes or lesions noted.
[2018-05-15 07:54] LABS: URINE APPEARANCE SLCLOUDY; URINE BILIRUBIN NEGATIVE (<2.0 mg/dL); URINE COLOR LTYELLOW; URINE GLUCOSE (UA) NEGATIVE (NEGATIVE); URINE KETONE NEGATIVE (NEGATIVE); URINE LEUK ESTERASE NEGATIVE (NEGATIVE); URINE NITRITE NEGATIVE (NEGATIVE); URINE PROTEIN NEGATIVE (NEGATIVE); URINE UROBILINOGEN NEGATIVE mg/dL (0.2-1.0)
[2018-05-15 08:06] LABS: EPI CELLS FEW /HPF (FEW); URINE MUCUS RARE
--- NOTE | 2018-05-15 08:29 | PDOC ---
*Physical Exam - Vital Signs Last Vital Signs Temp Pulse Resp BP Pulse Ox 98.2 F 97 H 19 140/91 99 05/15/18 04:34 05/15/18 04:34 05/15/18 04:34 05/15/18 04:34 05/15/18 04:34 - Physical Exam Comments: 05/15/18 08:28 \GENERAL: Awake, alert, and fully oriented, in no acute distress HEAD: No signs of trauma, normocephalic, atraumatic EYES: PERRLA, EOMI, sclera anicteric, conjunctiva clear LUNGS: No distress, speaks full sentences, clear to auscultation bilaterally HEART: Regular rate and rhythm, normal S1 and S2, no murmurs, rubs or gallops, peripheral pulses normal and equal bilaterally. ABDOMEN: Soft, +left sided CVA tenderness, no suprapubic tenderness EXTREMITIES: Normal inspection, Normal range of motion, no edema. No clubbing or cyanosis. NEUROLOGICAL: Cranial nerves II through XII grossly intact. Normal speech, no focal sensorimotor deficits SKIN: Warm, Dry, normal turgor, no rashes or lesions noted. ED Treatment Course - LABORATORY CBC & Chemistry Diagram: 05/15/18 04:45 05/15/18 04:45 - ADDITIONAL ORDERS Additional order review: Laboratory Results 05/15/18 05/15/18 07:41 04:45 Sodium 143 Potassium 4.0 Chloride 110 H Carbon Dioxide 22 Anion Gap 11 BUN 13 Creatinine 0.9 Creat Clearance w eGFR > 60 Random Glucose 121 H Calcium 8.9 Total Bilirubin 0.2 AST 25 ALT 44 Alkaline Phosphatase 84 Total Protein 7.3 Albumin 3.7 Lipase 104 Urine Color Ltyellow Urine Appearance Slcloudy Urine pH 5.0 Ur Specific [place] 1.019 Urine Protein Negative Urine Glucose (UA) Negative Urine Ketones Negative Urine Blood 3+ H Urine Nitrite Negative Urine Bilirubin Negative Urine Urobilinogen Negative Ur Leukocyte Esterase Negative Urine WBC (Auto) 2 Urine RBC (Auto) 5 Ur Epithelial Cells Few Urine Mucus Rare 05/15/18 04:45 RBC 4.85 MCV 81.0 MCHC 34.1 RDW 15.2 MPV 8.1 Neutrophils % 68.5 Lymphocytes % 24.5 D Monocytes % 4.3 Eosinophils % 2.1 D Basophils % 0.6 - Medications Given in the ED: ED Medications Discontinued Medications Generic Name Dose Route Start Last Admin Trade Name Kamran PRN Reason Stop Dose Admin Ketorolac Tromethamine 30 mg 05/15/18 04:40 05/15/18 04:51 Toradol Injection - IVPUSH 05/15/18 04:41 30 mg ONCE ONE Administration Morphine Sulfate 4 mg 05/15/18 05:16 05/15/18 05:26 Morphine Injection - IVPUSH 05/15/18 05:17 4 mg ONCE ONE Administration Ondansetron HCl 4 mg 05/15/18 04:39 05/15/18 04:51 Zofran Injection IVPUSH 05/15/18 04:40 4 mg ONCE ONE Administration Sodium Chloride 1,000 ml 05/15/18 05:00 05/15/18 05:05 Normal Saline - IV 05/15/18 05:01 1,000 ml ONCE ONE Administration Medical Decision Making - Medical Decision Making 05/15/18 08:[address] Pulido. Patient is 43F here today with flank pain. DDx is weighted towards UTI vs kidney stones. UA and CT pending. Labs reviewed, show: Laboratory Tests 05/15/18 05/15/18 05/15/18 04:45 04:45 07:41 WBC 9.0 Hgb 13.4 Plt Count 252 BUN 13 Creatinine 0.9 Urine Blood 3+ H Urine Nitrite Negative Ur Leukocyte Esterase Negative Urine WBC (Auto) 2 CBC normal. CMP shows normal kidney function, overall reassuring. UA shows blood , no signs of infection. Pending CT read. 05/15/18 09:01 CT shows 2mm ureteral stone, small amount of hydronephrosis. Patient reassessed , writhing and in tears from pain. Given 4mg morphine. 1L bolus started. *DC/Admit/Observation/Transfer Diagnosis at time of Disposition: Kidney stone - Discharge Dispostion Disposition: HOME Condition at time of disposition: Good Decision to Admit order: No - Prescriptions Prescriptions: Tamsulosin HCl [Flomax] 0.4 mg PO DAILY #14 capsule - Referrals Referrals: Mart Arias MD [Primary Care Provider] - Prieto Valencia MD [Staff Physician] - - Patient Instructions Printed Discharge Instructions: Kidney Stones -- Adult Additional Instructions: Please return if you have any new worsening or concerning symptoms. Please follow up with urology in the next week. Please return if you have fever, inability to tolerate eating and drinking, and if the pain is too much for you to bear at home. - Post Discharge Activity
[2018-05-15] MEDS ORDERED: TAMSULOSIN HCL 0.4 MG CAP.ER.24H (FP) PO ONE (09:02)
[2018-05-15] MEDS ORDERED: SODIUM CHLORIDE 1,000 ML IV STA (09:02)
[2018-05-15] MEDS ORDERED: TAMSULOSIN HCL 0.4 MG CAP.ER.24H (FP) ONE (09:08)
[2018-05-15 09:27] VITALS: BP 136/77; PULSE 82
--- NOTE | 2018-05-15 13:21 | EKG ---
Test Reason : Blood Pressure : / mmHG Vent. Rate : 066 BPM Atrial Rate : 066 BPM P-R Int : 166 ms QRS Dur : 080 ms QT Int : 412 ms P-R-T Axes : 027 000 020 degrees QTc Int : 431 ms NORMAL SINUS RHYTHM MINIMAL VOLTAGE CRITERIA FOR LVH, MAY BE NORMAL VARIANT BORDERLINE ECG WHEN COMPARED WITH ECG OF 14-MAY-2017 18:01, NO SIGNIFICANT CHANGE WAS FOUND Confirmed by GABRIEL RODRIGUEZ MD ([id number]) on 05/15/2018 1:21:07 PM Referred By: Confirmed By:GABRIEL RODRIGUEZ MD
== END 2018-05-15 10:18 | disposition home or self-care (01) ==
LOC: JER 04:29
PROC: 3E033GC Introduction of Other Therapeutic Substance into Peripheral Vein, Percutaneous Approach (ICD-10-PCS; principal; 2018-05-15)
PROC: 3E0333Z Introduction of Anti-inflammatory into Peripheral Vein, Percutaneous Approach (ICD-10-PCS; 2018-05-15)
PROC: 3E033NZ Introduction of Analgesics, Hypnotics, Sedatives into Peripheral Vein, Percutaneous Approach (ICD-10-PCS; 2018-05-15)
PROC: 3E033NZ Introduction of Analgesics, Hypnotics, Sedatives into Peripheral Vein, Percutaneous Approach (ICD-10-PCS; 2018-05-15)
DX: N13.2 Hydronephrosis with renal and ureteral calculous obstruction (principal); D64.9 Anemia, unspecified; J45.909 Unspecified asthma, uncomplicated; M54.5 Low back pain; M54.2 Cervicalgia; G89.29 Other chronic pain; R73.03 Prediabetes
CPT/HCPCS: 74176-TC; 80053; 81003; 81015; 83690; 85025; 87086; 93005; 93010; 96374; 96375; 96376; 99282-25; J7030

== ENCOUNTER 2018-07-12 09:17 | Emergency (ER) | payer OTHER ==
[2018-07-12 09:38] VITALS: TEMP 98.6; BMI 35.4
[2018-07-12] MEDS ORDERED: KETOROLAC TROMETHAMINE 60 MG/2 ML VIAL IM ONE (10:37)
[2018-07-12] MEDS ORDERED: KETOROLAC TROMETHAMINE 60 MG/2 ML VIAL ONE (10:43)
[2018-07-12 10:50] LABS: URINE APPEARANCE CLEAR; URINE BILIRUBIN NEGATIVE (<2.0 mg/dL); URINE COLOR LTYELLOW; URINE GLUCOSE (UA) NEGATIVE (NEGATIVE); URINE KETONE NEGATIVE (NEGATIVE); URINE LEUK ESTERASE NEGATIVE (NEGATIVE); URINE NITRITE NEGATIVE (NEGATIVE); URINE PROTEIN NEGATIVE (NEGATIVE); URINE UROBILINOGEN NEGATIVE mg/dL (0.2-1.0)
--- NOTE | 2018-07-12 10:50 | PDOC ---
History of Present Illness - General Chief Complaint: Pain Stated Complaint: ABD PAIN Time Seen by Provider: 07/12/18 10:29 History Source: Patient Exam Limitations: Clinical Condition - History of Present Illness Initial Comments: 07/12/18 10:44 Patient with h/o Asthma and kidney stones present with complains of left flank and LLQ pain with nausea and vomiting since yesterday. report 8 episodes of vomiting yesterday with 1 episode today. report pain in left flank radiating to mid-back. Patient also report diarrhea for same period. Denies fever, chills. malaise, bloody or mucoid stool. report last kidney stones 2 months ago Timing/Duration: 24 hours Past History - Past Medical History Allergies/Adverse Reactions: Allergies Allergy/AdvReac Type Severity Reaction Status Date / Time levofloxacin [From Levaquin] Allergy Intermediate Rash Verified 07/12/18 09:34 Home Medications: Ambulatory Orders Acetaminophen 500 mg PO TID #90 tablet 04/18/18 Gabapentin 100 mg PO TID #63 capsule 04/18/18 Tramadol HCl [Ultram] 50 mg PO QID PRN #28 tablet MDD 4 04/18/18 Oxycodone HCl/Acetaminophen [Percocet 5-325 mg Tablet] 1 tab PO Q6H PRN #10 tablet MDD 4 05/15/18 Tamsulosin HCl [Flomax] 0.4 mg PO DAILY #14 capsule 05/15/18 Ketorolac Tromethamine [Toradol] 10 mg PO TID PRN #21 tablet 07/12/18 Ondansetron HCl [Zofran] 4 mg PO Q8H PRN #12 tablet 07/12/18 Anemia: Yes Asthma: Yes Cancer: No Cardiac Disorders: No COPD: No DVT: No Diabetes: Yes (prediabetes) GI Disorders: No Disorders: No HTN: No Hypercholesterolemia: No Liver Disease: No Psychiatric Problems: Yes (depression) Seizures: No Thyroid Disease: No - Surgical History Abdominal Surgery: Yes (hernia) - Immunization History Immunization Up to Date: No - Suicide/Smoking/Psychosocial Hx Smoking History: Current every day smoker Have you smoked in the past 12 months: Yes Number of Cigarettes Smoked Daily: 2 If you are a former smoker, when did you quit?: last week Information on smoking cessation initiated: No 'Breaking Loose' booklet given: 03/23/18 Hx Alcohol Use: No Drug/Substance Use Hx: No Substance Use Type: None Hx Substance Use Treatment: No Review of Systems - Review of Systems Able to Perform ROS?: Yes Is the patient limited Finnish proficient: No Constitutional: No: Chills, Fever, Malaise, Weakness HEENTM: No: Symptoms Reported Respiratory: No: Symptoms reported Cardiac (ROS): No: Symptoms Reported ABD/GI: Yes: See HPI, Diarrhea, Nausea, Vomiting, Abdominal cramping (left flank /LLQ). No: Abdominal Distended, Blood Streaked Bowels, Difficulty Swallowing, Rectal Bleeding : Yes: Flank Pain (left flank pain). No: Burning, Dysuria, Discharge, Hematuria, Urgency All Other Systems: Reviewed and Negative *Physical Exam - Vital Signs Last Vital Signs Temp Pulse Resp BP Pulse Ox 98.6 F 74 22 122/61 100 07/12/18 09:35 07/12/18 09:35 07/12/18 09:35 07/12/18 09:35 07/12/18 09:35 - Physical Exam Comments: 07/12/18 10:59 GENERAL: Well developed, well nourished. Awake and alert. mild distress. NECK: Supple. Full ROM. CARDIOVASCULAR: Regular rate and rhythm. No murmurs, rubs, or gallops. Distal pulses are 2+ and symmetric. PULMONARY: No evidence of respiratory distress. Lungs clear to auscultation bilaterally. No wheezing, rales or rhonchi. ABDOMINAL: Moderate tenderness to left flank and left lower quadrant area. Soft. Non-distended. No rebound or guarding. No organomegaly. Diffuse hyperactive bowel sounds. MUSCULOSKELETAL No CVA tenderness. EXTREMITIES: No cyanosis. No clubbing. No edema. No calf tenderness. SKIN: Warm and dry. Normal capillary refill. No rashes. No jaundice. NEUROLOGICAL: Alert, awake, appropriate. PSYCHIATRIC: Cooperative. Good eye contact. Appropriate mood and affect. General Appearance: Yes: Nourished, Appropriately Dressed, Moderate Distress ED Treatment Course - LABORATORY CBC & Chemistry Diagram: 07/12/18 10:53 07/12/18 10:53 - RADIOLOGY Radiology Studies Ordered: Category Date Time Status ABDOMEN & PELVIS CT W/O CONTR [CT] Stat CT Scan 07/12/18 10:35 Ordered Medical Decision Making - Medical Decision Making 07/12/18 11:03 Patient with history of asthma and kidney stone present with complain of left lower quadrant pain and left flank pain since yesterday with nausea vomiting. Exam significant for moderate tenderness to left flank and lower quadrant without guarding or rebound tenderness. CBC ,Urine labs. CMP and CT with by mouth contrast ordered to rule out nephrolithiasis versus diverticulitis. Toradol 60 mg IM for pain. Treat based on labs and imaging results 07/12/18 13:17 Labs within normal limits. Abdominal CT with non-obstructing left kidney stones finding. Patient stable for home discharge with urology follow-up. Patient be discharged home on NSAIDs and zofran for N/V. 07/12/18 13:39 *DC/Admit/Observation/Transfer Diagnosis at time of Disposition: Nausea vomiting and diarrhea, Left flank pain, Nephrolithiasis Abdominal pain Qualifiers: Abdominal location: left lower quadrant Qualified Code(s): R10.32 - Left lower quadrant pain - Discharge Dispostion Disposition: HOME Condition at time of disposition: Stable Decision to Admit order: No - Prescriptions Prescriptions: Ketorolac Tromethamine [Toradol] 10 mg PO TID PRN #21 tablet PRN Reason: pain Ondansetron HCl [Zofran] 4 mg PO Q8H PRN #12 tablet PRN Reason: nausea and vomiting - Referrals Referrals: Mart Arias MD [Primary Care Provider] - Lang Galvez MD [Staff Physician] - - Patient Instructions Printed Discharge Instructions: DI for Abdominal Pain-Adult Additional Instructions: Take medications as prescribed as needed for pain. Follow-up with referred urology doctor - Post Discharge Activity
[2018-07-12 11:07] LABS: BASO % 0.7 % (0-2.0); EOS % 0.9 % (0-4.5); HEMATOCRIT 37.9 % (32.4-45.2); HEMOGLOBIN 12.5 GM/dL (10.7-15.3); LYMPH % 21.4 % (8-40); MCH 27.4 pg (25.7-33.7); MCHC 33.1 g/dl (32.0-36.0); MEAN CELL VOLUME 82.7 fl (80-96); MEAN PLT VOLUME 7.7 fl (7.5-11.1); MONO % 3.8 % (3.8-10.2); NEUT % 73.2 % (42.8-82.8); PLATELET COUNT 220 K/MM3 (134-434); RBC 4.59 M/mm3 (3.60-5.2); WHITE BLOOD COUNT 8.2 K/mm3 (4.0-10.0)
--- NOTE | 2018-07-12 11:14 | PDOC ---
*Physical Exam - Vital Signs Last Vital Signs Temp Pulse Resp BP Pulse Ox 98.6 F 74 22 122/61 100 07/12/18 09:35 07/12/18 09:35 07/12/18 09:35 07/12/18 09:35 07/12/18 09:35 - Physical Exam Comments: 07/12/18 11:13 The patient was examined by ASA Petit] under my direct supervision. I personally evaluated the patient. I concur with the above findings and the plan of care. ED Treatment Course - LABORATORY CBC & Chemistry Diagram: 07/12/18 10:53 07/12/18 10:53 - ADDITIONAL ORDERS Additional order review: Laboratory Results 07/12/18 10:40 Urine Color Ltyellow Urine Appearance Clear Urine pH 7.0 D Ur Specific [place] 1.018 Urine Protein Negative Urine Glucose (UA) Negative Urine Ketones Negative Urine Blood Negative Urine Nitrite Negative Urine Bilirubin Negative Urine Urobilinogen Negative Ur Leukocyte Esterase Negative 07/12/18 10:53 RBC 4.59 MCV 82.7 MCHC 33.1 RDW 15.0 MPV 7.7 Neutrophils % 73.2 Lymphocytes % 21.4 Monocytes % 3.8 Eosinophils % 0.9 Basophils % 0.7 - Medications Given in the ED: ED Medications Discontinued Medications Generic Name Dose Route Start Last Admin Trade Name Kamran PRN Reason Stop Dose Admin Ketorolac Tromethamine 60 mg 07/12/18 10:37 07/12/18 10:46 Toradol Injection - IM 07/12/18 10:38 60 mg ONCE ONE Administration *DC/Admit/Observation/Transfer - Referrals Referrals: Mart Arias MD [Primary Care Provider] - - Patient Instructions - Post Discharge Activity
[2018-07-12 11:40] LABS: ALBUMIN 3.6 g/dl (3.4-5.0); ANION GAP 8 MMOL/L (8-16); BLOOD UREA NITROGEN 11 mg/dL (7-18); CALCIUM 9.4 mg/dL (8.5-10.1); CHLORIDE 110 mmol/L (98-107); CO2 25 mmol/L (21-32); CREATININE 0.6 mg/dL (0.55-1.02); GLUCOSE,RANDOM 96 mg/dL (74-106); POTASSIUM 4.7 mmol/L (3.5-5.1); SGOT/AST 22 U/L (15-37); SGPT/ALT 45 U/L (12-78); SODIUM 143 mmol/L (136-145)
[2018-07-12 11:41] LABS: ALK PHOS 73 U/L (45-117); BILIRUBIN,TOTAL 0.3 mg/dL (0.2-1.0); TOT PROT 7.1 g/dl (6.4-8.2)
[2018-07-12 14:38] VITALS: BP 127/85; PULSE 85
== END 2018-07-12 14:38 | disposition home or self-care (01) ==
LOC: JER 09:17
PROC: 3E0233Z Introduction of Anti-inflammatory into Muscle, Percutaneous Approach (ICD-10-PCS; principal; 2018-07-12)
DX: N20.0 Calculus of kidney (principal); R10.32 Left lower quadrant pain; R11.2 Nausea with vomiting, unspecified; R19.7 Diarrhea, unspecified
CPT/HCPCS: 36415; 74176-TC; 80053; 81003; 85025; 87086; 96372; 99283-25

== ENCOUNTER → 2018-10-29 | Emergency (ER) | payer OTHER ==
[~2018-10-29] MED LIST: ONDANSETRON 4 MG/2 ML VIAL ONE; morphine SULFATE 4 MG/ML VIAL ONE
[2018-10-29 16:54] VITALS: BP 144/78; PULSE 80; TEMP 98.1; BMI 37.3
== END | disposition left against medical advice (07) ==
LOC: JER 16:45
DX: Z53.21 Procedure and treatment not carried out due to patient leaving prior to being seen by health care provider (principal)
CPT/HCPCS: 99281-25

== ENCOUNTER 2018-11-01 11:48 | Inpatient (IN) | payer OTHER ==
--- NOTE | 2018-11-01 12:17 | PDOC ---
History of Present Illness - General Chief Complaint: Pain Stated Complaint: PAIN Time Seen by Provider: 11/01/18 12:16 - History of Present Illness Initial Comments: 11/01/18 12:17 Ms. Robison is a 43 yo female w/ pmh of preDM, asthma, anemia, depression, chronic left back pain, nephrolithiasis, s/p hysterectomy who presents for evaluation of 4 day history of LLQ abdominal pain. Patient reports pain has been severe however fluctuant and with associated nausea/vomiting x3 today and darkened urine. Patient denies any other symptoms, had originally presented for evaluation however left without being seen. The patient denies chest pain, shortness of breath, headache and dizziness. Denies fever, chills, diarrhea and constipation. Denies dysuria, frequency, and urgency. Past History - Past Medical History Allergies/Adverse Reactions: Allergies Allergy/AdvReac Type Severity Reaction Status Date / Time levofloxacin [From Levaquin] Allergy Intermediate Rash Verified 11/01/18 12:02 Home Medications: Ambulatory Orders NK [No Known Home Medication] 11/01/18 Anemia: Yes Asthma: Yes Cancer: No Cardiac Disorders: No COPD: No DVT: No Diabetes: Yes (prediabetes) GI Disorders: No Disorders: No HTN: No Hypercholesterolemia: No Liver Disease: No Psychiatric Problems: Yes (depression) Seizures: No Thyroid Disease: No - Surgical History Abdominal Surgery: Yes (hernia) - Immunization History Immunization Up to Date: No - Suicide/Smoking/Psychosocial Hx Smoking History: Never smoked Have you smoked in the past 12 months: No Number of Cigarettes Smoked Daily: 2 If you are a former smoker, when did you quit?: last week Information on smoking cessation initiated: No 'Breaking Loose' booklet given: 03/23/18 Hx Alcohol Use: No Drug/Substance Use Hx: No Substance Use Type: None Hx Substance Use Treatment: No Review of Systems - Review of Systems Comments:: 11/01/18 12:33 GENERAL/CONSTITUTIONAL: No fever or chills. No weakness. HEAD, EYES, EARS, NOSE AND THROAT: No change in vision. No ear pain or discharge. No sore throat. CARDIOVASCULAR: No chest pain or shortness of breath RESPIRATORY: No cough, wheezing, or hemoptysis. GASTROINTESTINAL: +N/V as described. LLQ pain. No diarrhea or constipation. GENITOURINARY: +Darkened urine as described. MUSCULOSKELETAL: No joint or muscle swelling or pain. No neck or back pain. SKIN: No rash NEUROLOGIC: No headache, vertigo, loss of consciousness, or change in strength/ sensation. ENDOCRINE: No increased thirst. No abnormal weight change HEMATOLOGIC/LYMPHATIC: No anemia, easy bleeding, or history of blood clots. ALLERGIC/IMMUNOLOGIC: No hives or skin allergy. *Physical Exam - Vital Signs Last Vital Signs Temp Pulse Resp BP Pulse Ox 97.4 F L 70 16 138/80 100 11/01/18 11:48 11/01/18 11:48 11/01/18 11:48 11/01/18 11:48 11/01/18 11:48 - Physical Exam Comments: 11/01/18 12:34 GENERAL: Awake, alert, and fully oriented, in no acute distress HEAD: No signs of trauma, normocephalic, atraumatic EYES: PERRLA, EOMI, sclera anicteric, conjunctiva clear ENT: Auricles normal inspection, hearing grossly normal, nares patent, oropharynx clear without exudates. Moist mucosa NECK: Normal ROM, supple, no lymphadenopathy, JVD, or masses LUNGS: No distress, speaks full sentences, clear to auscultation bilaterally HEART: Regular rate and rhythm, normal S1 and S2, no murmurs, rubs or gallops, peripheral pulses normal and equal bilaterally. ABDOMEN: +LLQ pain. Soft, normoactive bowel sounds. No guarding, no rebound. No masses EXTREMITIES: Normal inspection, Normal range of motion, no edema. No clubbing or cyanosis. NEUROLOGICAL: Cranial nerves II through XII grossly intact. Normal speech, normal gait, no focal sensorimotor deficits SKIN: Warm, Dry, normal turgor, no rashes or lesions noted. Moderate Sedation - Procedure Monitoring Vital Signs: Procedure Monitoring Vital Signs Temperature 97.4 F L 11/01/18 11:48 Pulse Rate 70 11/01/18 11:48 Respiratory Rate 16 11/01/18 11:48 Blood Pressure 138/80 11/01/18 11:48 O2 Sat by Pulse Oximetry (%) 100 11/01/18 11:48 ED Treatment Course - LABORATORY CBC & Chemistry Diagram: 11/01/18 13:00 11/01/18 13:00 Medical Decision Making - Medical Decision Making 11/01/18 16:30 Ms. Robison is a 43 yo female w/ pmh as described who presents for evaluation of symptoms concerning for nephrolithiasis. Patient pain controlled with morphine. Presence of stone confirmed by CT and noted to be 7x3mm. Urology paged and admitting patient for further workup. 11/01/18 16:40 Discussed patient with urology who requested 1g rocephin and admit for further care. Will comply. *DC/Admit/Observation/Transfer Diagnosis at time of Disposition: Nephrolithiasis - Discharge Dispostion Decision to Admit order: Yes - Referrals Referrals: Mart Arias MD [Primary Care Provider] - - Patient Instructions - Post Discharge Activity
[2018-11-01] MEDS ORDERED: morphine CARPU-JECT 4 MG/1 ML DISP.SYRIN IVPUSH ONE ×2 (12:21→16:04)
[2018-11-01] MEDS ORDERED: ONDANSETRON 4 MG/2 ML VIAL IVPUSH ONE (12:22)
[2018-11-01] MEDS ORDERED: SODIUM CHLORIDE 1,000 ML IV STA (12:22)
--- NOTE | 2018-11-01 12:28 | PDOC ---
Attending Attestation - [facility] HPI: 11/01/18 12:44 The patient is a 43 year old female, with a significant past medical history of kidney stones, who presents to the emergency department with 4 days of left flank and left lower quadrant pain with associated nausea, vomiting, and dark urine. She states she was here 4 days ago, but left secondary to the long wait. She states the pain increased today and reports the pain as a 10/10. The patient denies chest pain, shortness of breath, headache and dizziness. The patient denies fever, chills, nausea, vomit, diarrhea and constipation. The patient denies dysuria, frequency, urgency and hematuria. Allergies: levofloxacin Past surgical history: hysterectomy, hernia repair Social history: denies toxic habits PCP - Dr. Arias - Physicial Exam PE: 11/01/18 12:49 GENERAL: (+) Pt appears very uncomfortable. The patient is in no acute distress. HEAD: Normal with no signs of trauma. EYES: PERRLA, EOMI, sclera anicteric, conjunctiva clear. ENT: Ears normal, nares patent, oropharynx clear without exudates. Moist mucous membranes. NECK: Normal range of motion, supple without lymphadenopathy, JVD, or masses. LUNGS: Breath sounds equal, clear to auscultation bilaterally. No wheezes, and no crackles. HEART:Regular rate and rhythm, normal S1 and S2 without murmur, rub or gallop. ABDOMEN: (+) LLQ tenderness. Soft, normoactive bowel sounds. No guarding, no rebound. No masses palpable. EXTREMITIES: Normal range of motion, no edema. No clubbing or cyanosis. No erythema, or tenderness. NEUROLOGICAL: Cranial nerves II through XII grossly intact. Normal speech. No focal neurological deficits. MUSCULOSKELETAL: (+) left CVA tenderness. Back non-tender to palpation, no CVA tenderness SKIN: Warm, Dry, normal turgor, no rashes or lesions noted. - Medical Decision Making 11/01/18 12:50 Documentation prepared by Valerie Lacy, acting as biomedical engineering aide for Marcelle Garcia MD 11/01/18 16:30 Dr. Valdovinos, urology, was called at this time and the patient's case was discussed with Dr. Wellington at this time. EXAM#: TYPE/EXAM: RESULT: CT/SPIRAL- RENAL-STONE CT Renal stone CT without contrast Clinical information: left lower quadrant pain, evaluate for stone Multiplanar imaging was performed. No intravenous or enteric contrast was administered. An approximately 0.7 x 0.3 cm calculus is seen at the left ureteropelvic junction with resultant mild hydronephrosis. At the time of a previous CT study of 07/12/2018 this calculus had been located within a mid pole calyx of the left kidney. No other definite urinary tract calculus is seen. The remainder of the exam demonstrates no obvious interval change. Large left-sided and small to moderate right-sided inguinal hernias are containing fat only. The liver, spleen, pancreas, gallbladder, and adrenal glands demonstrate no discrete noncontrast abnormality. There is no aortic aneurysm. No definite lymphadenopathy is seen. There is no evidence of free intraperitoneal fluid or bowel obstruction. No CT evidence of acute appendicitis or diverticulitis. There is no gross noncontrast small bowel pathology. No obvious pelvic abnormality is noted. The visualized osseous structures demonstrate no gross acute pathology. Impression: 0.7 x 0.3 cm left ureteropelvic junction calculus with resultant mild hydronephrosis. Bilateral inguinal hernias containing fat only. Reported By: Prieto Peguero MD 11/01/18 1628 <Valerie Lacy - Last Filed: 11/01/18 16:34> - Resident Resident Name: Yonas Wellington - ED Attending Attestation I have performed the following: I have examined & evaluated the patient, The case was reviewed & discussed with the resident, I agree w/resident's findings & plan, Exceptions are as noted - Medical Decision Making Twelve-lead EKG was performed and reviewed by me. There is normal sinus rhythm with a normal rate. The axis is normal. The intervals are normal. There are no ST or T wave abnormalities. Impression: Normal twelve-lead EKG 11/01/18 14:10 Laboratory Tests 11/01/18 11/01/18 11/01/18 13:00 13:00 13:00 WBC 8.4 Hgb 12.9 Hct 39.1 Plt Count 208 INR 0.97 BUN 12 Creatinine 0.7 Urine WBC (Auto) Urine RBC (Auto) Urine HCG, Qual 11/01/18 11/01/18 13:15 13:15 WBC Hgb Hct Plt Count INR BUN Creatinine Urine WBC (Auto) 26 Urine RBC (Auto) 105 Urine HCG, Qual Negative 11/01/18 15:44 CT performed Demonstrates upper ureter stone 6mm in diameter, with hydroureter Will plan to admit Ceftriaxone ordered Clinical Impression: obstructing ureteral stone, initial presentation 11/01/18 18:31 <Marcelle Garcia - Last Filed: 11/03/18 07:47>
[2018-11-01 13:05] LABS: BASO % 0.8 % (0-2.0); EOS % 1.5 % (0-4.5); HEMATOCRIT 39.1 % (32.4-45.2); HEMOGLOBIN 12.9 GM/dL (10.7-15.3); LYMPH % 16.3 % (8-40); MCH 27.5 pg (25.7-33.7); MEAN CELL VOLUME 83.4 fl (80-96); MEAN PLT VOLUME 7.5 fl (7.5-11.1); MONO % 4.1 % (3.8-10.2); NEUT % 77.3 % (42.8-82.8); PLATELET COUNT 208 K/MM3 (134-434); RBC 4.69 M/mm3 (3.60-5.2); RDW 14.5 % (11.6-15.6); WHITE BLOOD COUNT 8.4 K/mm3 (4.0-10.0)
[2018-11-01 13:17] LABS: INR 0.97 (0.83-1.09); PROTHROMBIN TIME (PATIENT) 11.4 SEC (9.7-13.0)
[2018-11-01 13:20] LABS: ACTIVATED PTT 29.5 SECONDS (25.2-36.5)
[2018-11-01 13:22] LABS: URINE APPEARANCE SLCLOUDY; URINE BILIRUBIN NEGATIVE (<2.0 mg/dL); URINE COLOR LTYELLOW; URINE GLUCOSE (UA) NEGATIVE (NEGATIVE); URINE KETONE NEGATIVE (NEGATIVE); URINE LEUK ESTERASE NEGATIVE (NEGATIVE); URINE NITRITE NEGATIVE (NEGATIVE); URINE PROTEIN 1+ (NEGATIVE); URINE UROBILINOGEN NEGATIVE mg/dL (0.2-1.0)
[2018-11-01 13:25] LABS: EPI CELLS RARE /HPF (FEW); URINE HYALINE CAST 1 /lpf; URINE MUCUS RARE
[2018-11-01 13:39] LABS: ALBUMIN 3.6 g/dl (3.4-5.0); ALK PHOS 79 U/L (45-117); ANION GAP 7 MMOL/L (8-16); BILIRUBIN,TOTAL 0.4 mg/dL (0.2-1); BLOOD UREA NITROGEN 12 mg/dL (7-18); CALCIUM 8.9 mg/dL (8.5-10.1); CHLORIDE 107 mmol/L (98-107); CO2 24 mmol/L (21-32); CREATININE 0.7 mg/dL (0.55-1.3); GLUCOSE,RANDOM 94 mg/dL (74-106); POTASSIUM 4.8 mmol/L (3.5-5.1); SGOT/AST 40 U/L (15-37); SGPT/ALT 50 U/L (13-61); SODIUM 138 mmol/L (136-145); TOT PROT 7.3 g/dl (6.4-8.2)
[2018-11-01] MEDS ORDERED: CEFTRIAXONE 1 GM in DEXTROSE 5%-WATER - 50 ML IVPB ONE ×2 (15:45→18:00)
[2018-11-01] MEDS ORDERED: morphine SULFATE 4 MG/ML VIAL ONE (16:10)
[2018-11-01] MEDS ORDERED: CEFTRIAXONE 1 GM/50 ML BAG ONE (16:10)
[2018-11-01] MEDS ORDERED: CEFTRIAXONE 1,000 MG in DEXTROSE 5%-WATER - 50 ML IVPB ONE (16:35)
--- NOTE | 2018-11-01 17:41 | HP ---
CHIEF COMPLAINT: Recurrent L flank pain x4 days, dark colored urine PCP: HISTORY OF PRESENT ILLNESS: Pt is a 43 yo obese, Female with pmh of preDM, asthma, anemia, depression, chronic left back pain, complicated migraine, nephrolithiasis, s/p hysterectomy presenting with a 4 day history of LLQ/flank abdominal pain. Patient reports pain has been 10/10, intermittent and with associated nausea/vomiting x3 today , and diarrhea x4 episodes and darkened urine. Pt noted a fever on Tuesday which resolved spontaneously, made multiple visits to the ED for the pain in the past week. Pt has had similar pains in the past. In july 2018 was noted to have stones without obstruction, and reported stones also in April 2018 and has received conservative treatment in past. ED discussed the pt with urology who asked for pt to be placed on rocephin ER course was notable for: (1) UA-1+ pr, 3+ blood, RBC-105, WBC-26, trace mucus, LE-ve (2)CT -obstructive stone in ureteropelvic junction with mild hydronephrosis (3) Rocephin Recent Travel: PAST MEDICAL HISTORY: PAST SURGICAL HISTORY: Social History: Smoking: Alcohol: Drugs: Family History: Allergies levofloxacin [From Levaquin] Allergy (Intermediate, Verified 11/01/18 12:02) Rash HOME MEDICATIONS: Home Medications Medication Instructions Recorded NK [No Known Home Medication] 11/01/18 REVIEW OF SYSTEMS CONSTITUTIONAL: Absent: fever, chills, diaphoresis, generalized weakness, malaise, loss of appetite, weight change HEENT: Absent: rhinorrhea, nasal congestion, throat pain, throat swelling, difficulty swallowing, mouth swelling, ear pain, eye pain, visual changes CARDIOVASCULAR: Absent: chest pain, syncope, palpitations, irregular heart rate, lightheadedness , peripheral edema RESPIRATORY: Absent: cough, shortness of breath, dyspnea with exertion, orthopnea, wheezing, stridor, hemoptysis GASTROINTESTINAL: Absent: abdominal pain, abdominal distension, nausea, vomiting, diarrhea, constipation, melena, hematochezia GENITOURINARY: Absent: dysuria, frequency, urgency, hesitancy, hematuria, flank pain, genital pain MUSCULOSKELETAL: Absent: myalgia, arthralgia, joint swelling, back pain, neck pain SKIN: Absent: rash, itching, pallor HEMATOLOGIC/IMMUNOLOGIC: Absent: easy bleeding, easy bruising, lymphadenopathy, frequent infections ENDOCRINE: Absent: unexplained weight gain, unexplained weight loss, heat intolerance, cold intolerance NEUROLOGIC: Absent: headache, focal weakness or paresthesias, dizziness, unsteady gait, seizure, mental status changes, bladder or bowel incontinence PSYCHIATRIC: Absent: anxiety, depression, suicidal or homicidal ideation, hallucinations. PHYSICAL EXAMINATION Vital Signs - 24 hr 11/01/18 11:48 Temperature 97.4 F L Pulse Rate 70 Respiratory 16 Rate Blood Pressure 138/80 O2 Sat by Pulse 100 Oximetry (%) GENERAL: Awake, alert, and fully oriented, in no acute distress. HEAD: Normal with no signs of trauma. EYES: Pupils equal, round and reactive to light EARS, NOSE, THROAT: Moist mucous membranes. LUNGS: Breath sounds equal, clear to auscultation bilaterally HEART: Regular rate and rhythm, normal S1 and S2 without murmur ABDOMEN: Soft, tender L flank, obese, normoactive bowel sounds, mild voluntary guarding MUSCULOSKELETAL: Normal range of motion at all joints. L CVA tenderness. LOWER EXTREMITIES: 2+ pulses, warm, well-perfused. No calf tenderness. No peripheral edema. NEUROLOGICAL: Cranial nerves II-XII intact. Normal speech. Normal gait. PSYCHIATRIC: Anxious, Cooperative. Good eye contact. CBC, BMP 11/01/18 13:00 11/01/18 13:00 Laboratory Results - last 24 hr 11/01/18 11/01/18 11/01/18 13:00 13:00 13:00 WBC 8.4 RBC 4.69 Hgb 12.9 Hct 39.1 MCV 83.4 MCH 27.5 MCHC 33.0 RDW 14.5 Plt Count 208 MPV 7.5 Absolute Neuts (auto) 6.5 Neutrophils % 77.3 Lymphocytes % 16.3 D Monocytes % 4.1 Eosinophils % 1.5 Basophils % 0.8 Nucleated RBC % 0 PT with INR 11.40 INR 0.97 PTT (Actin FS) 29.5 Sodium 138 Potassium 4.8 Chloride 107 Carbon Dioxide 24 Anion Gap 7 L BUN 12 Creatinine 0.7 Creat Clearance w eGFR > 60 Random Glucose 94 Calcium 8.9 Total Bilirubin 0.4 AST 40 H ALT 50 Alkaline Phosphatase 79 Total Protein 7.3 Albumin 3.6 Urine Color Urine Appearance Urine pH Ur Specific Happy Urine Protein Urine Glucose (UA) Urine Ketones Urine Blood Urine Nitrite Urine Bilirubin Urine Urobilinogen Ur Leukocyte Esterase Urine WBC (Auto) Urine RBC (Auto) Ur Epithelial Cells Hyaline Casts Urine Mucus Urine HCG, Qual Blood Type Antibody Screen 11/01/18 11/01/18 11/01/18 13:00 13:15 13:15 WBC RBC Hgb Hct MCV MCH MCHC RDW Plt Count MPV Absolute Neuts (auto) Neutrophils % Lymphocytes % Monocytes % Eosinophils % Basophils % Nucleated RBC % PT with INR INR PTT (Actin FS) Sodium Potassium Chloride Carbon Dioxide Anion Gap BUN Creatinine Creat Clearance w eGFR Random Glucose Calcium Total Bilirubin AST ALT Alkaline Phosphatase Total Protein Albumin Urine Color Ltyellow Urine Appearance Slcloudy Urine pH 6.0 Ur Specific Happy 1.017 Urine Protein 1+ H Urine Glucose (UA) Negative Urine Ketones Negative Urine Blood 3+ H Urine Nitrite Negative Urine Bilirubin Negative Urine Urobilinogen Negative Ur Leukocyte Esterase Negative Urine WBC (Auto) 26 Urine RBC (Auto) 105 Ur Epithelial Cells Rare Hyaline Casts 1 Urine Mucus Rare Urine HCG, Qual Negative Blood Type O POSITIVE Antibody Screen Negative Spiral CT 11/01/17: 0.7 x 0.3 cm left ureteropelvic junction calculus with resultant mild hydronephrosis, Bilateral inguinal hernias containing fat only. ASSESSMENT/PLAN: Pt is a 43 yo Female with pmh of preDM, asthma, anemia, depression, chronic left back pain, complicated migraine, nephrolithiasis, s/p hysterectomy presenting with a 4 day history of LLQ/flank abdominal pain found to have obstructive L nephrolithiasis. L nephrolithiasis ON CT L ureteropelvic obstructive stones with mild hydronephrosis Toradol Iv fluid Strain all urine Outpt work up for stone analysis/work up Received rocephin, Hold Antibiotic, no evidence of infection at this point Urology consult- Aruna Type and screen UA-hematuria, absent LEs Flomax zofran EKG pending Hematuria Likely in setting of nephrolithiasis Cont Iv fluids preDM HgbA1c asthma Stable at this time Hx of anemia Stable at this time depression Needs med rec Obesity Weight loss counselling complicated migraine Stable at this time FEN iv NS @100 Monitor lytes, replete as needed Diet for PM, NPO after midnight in anticipation of urology procedure PPx- lovenox Visit type - Emergency Visit Emergency Visit: Yes ED Registration Date: 11/01/18 Care time: The patient presented to the Emergency Department on the above date and was hospitalized for further evaluation of their emergent condition. - New Patient This patient is new to me today: Yes Date on this admission: 11/01/18 - Critical Care Critical Care patient: No
[2018-11-01] MEDS ORDERED: KETOROLAC TROMETHAMINE 30 MG/1 ML VIAL IVPUSH PRN (17:46)
[2018-11-01] MEDS ORDERED: ONDANSETRON 4 MG/2 ML VIAL IVPUSH PRN (17:49)
[2018-11-01] MEDS: SODIUM CHLORIDE 1,000 ML IV SCH (18:15)
--- NOTE | 2018-11-01 19:26 | PN ---
Teaching Attending Note Name of Resident: Jennifer Charlton ATTENDING PHYSICIAN STATEMENT I saw and evaluated the patient. I reviewed the resident's note and discussed the case with the resident. I agree with the resident's findings and plan as documented. SUBJECTIVE: Patient is a 43 year old woman with PMH of prediabetes, asthma, anemia, depression, chronic left back pain, nephrolithiasis, s/p hysterectomy who presents for evaluation of 4 day history of LLQ abdominal pain. Patient reports pain has been severe however fluctuant and with associated nausea/vomiting x3 today and darkened urine. Patient denies any other symptoms, had originally presented 10/29 for evaluation however left without being seen. The patient denies chest pain, shortness of breath, headache, chills, diarrhea or dysuria. OBJECTIVE: Alert Vital Signs Period Temp Pulse Resp BP Sys/Ricci Pulse Ox Last 24 Hr 97.4 F 70 16 138/80 100 HEENT: No Jaundice, eye redness or discharge, PERRLA, EOMI. Normocephalic, atraumatic. External ears are normal and hearing is grossly intact. No nasal discharge. Neck: Supple, nontender. No palpable adenopathy or thyromegaly. No JVD Chest: Good effort. Clear to auscultation and percussion. Heart: Regular. No S3, rub or murmur Abdomen: Not distended, soft, Left CVAT and no HSM. No rebound or guarding. Normoactive bowel sounds. Ext: Peripheral pulses intact. No leg edema. Skin: Warm and dry. No petechiae, rash or ecchymosis. Neuro: Alert. Oriented x3. CN 2-12 grossly intact. Sensation grossly intact in all four extremities and DTR are symmetric. Current Medications Generic Name Dose Route Start Last Admin Trade Name Freq PRN Reason Stop Dose Admin Sodium Chloride 1,000 mls @ 100 mls/hr 11/01/18 17:45 11/01/18 18:15 Normal Saline - IV 100 mls/hr ASDIR GILLIAN Administration Ketorolac Tromethamine 30 mg 11/01/18 17:46 Toradol Injection - IVPUSH 11/06/18 17:45 Q6H PRN PAIN LEVEL 6-10 Ondansetron HCl 4 mg 11/01/18 17:49 Zofran Injection IVPUSH Q6H PRN NAUSEA AND/OR VOMITING Home Medications Medication Instructions Recorded NK [No Known Home Medication] 11/01/18 Abnormal Lab Results 11/01/18 11/01/18 13:00 13:15 Anion Gap 7 L AST 40 H Urine Protein 1+ H Urine Blood 3+ H ASSESSMENT AND PLAN: 1. Kidney stone - CT shows left UPJ stone and left hydronephrosis. Getting IV NS , morphine and toradol as well as flomax. Keep NPO after midnight for possible urologic procedure tomorrow. Strain urine and refer for stone disease risk factor search upon discharge. 2. Prediabetes - Will implement sliding scale insulin regimen. Provide comprehensive diabetes care with patient teaching and counseling about the importance of euglycemia, eye care and foot care. 3. Obesity - Will provide patient all the necessary assistance, counseling and positive reinforcement to facilitate weight loss. Consult mail distributor. 4. DVT prophylaxis - Lovenox 40 mg SQ q 24 hours. 5. Advance directives - Full code
[2018-11-01] MEDS: ENOXAPARIN NA (PORCINE) 40 MG/0.4 ML DISP.SYRIN SQ SCH (21:36)
[2018-11-01 23:34] VITALS: BMI 38.5
[2018-11-02] MEDS: SODIUM CHLORIDE 1,000 ML IV SCH ×2 (00:54→17:30)
[2018-11-02 06:40] LABS: BASO % 0.4 % (0-2.0); EOS % 2.6 % (0-4.5); HEMOGLOBIN 11.8 GM/dL (10.7-15.3); LYMPH % 22.1 % (8-40); MCH 27.2 pg (25.7-33.7); MCHC 32.7 g/dl (32.0-36.0); MEAN CELL VOLUME 83.2 fl (80-96); MEAN PLT VOLUME 7.7 fl (7.5-11.1); MONO % 5.1 % (3.8-10.2); NEUT % 69.8 % (42.8-82.8); PLATELET COUNT 184 K/MM3 (134-434); RBC 4.32 M/mm3 (3.60-5.2); RDW 14.4 % (11.6-15.6); WHITE BLOOD COUNT 6.5 K/mm3 (4.0-10.0)
[2018-11-02 07:08] LABS: ALK PHOS 65 U/L (45-117); ANION GAP 5 MMOL/L (8-16); BILIRUBIN,TOTAL 0.4 mg/dL (0.2-1); BLOOD UREA NITROGEN 12 mg/dL (7-18); CHLORIDE 110 mmol/L (98-107); CO2 24 mmol/L (21-32); CREATININE 0.6 mg/dL (0.55-1.3); GLUCOSE,RANDOM 99 mg/dL (74-106); MAGNESIUM 2.2 mg/dL (1.8-2.4); PHOSPHOROUS 3.2 mg/dL (2.5-4.9); POTASSIUM 4.3 mmol/L (3.5-5.1); SGOT/AST 27 U/L (15-37); SGPT/ALT 40 U/L (13-61); SODIUM 139 mmol/L (136-145); TOT PROT 5.9 g/dl (6.4-8.2)
[2018-11-02 07:20] LABS: INR 0.96 (0.83-1.09); PROTHROMBIN TIME (PATIENT) 11.3 SEC (9.7-13.0)
[2018-11-02 07:23] LABS: ACTIVATED PTT 29.6 SECONDS (25.2-36.5)
[2018-11-02] MEDS ORDERED: TAMSULOSIN HCL 0.4 MG CAP PO SCH (08:30)
[2018-11-02] MEDS ORDERED: FLU VACCINE QUAD 60 MCG/0.5 ML (MDV 18-19) IM ONE (10:00)
[2018-11-02] MEDS: ENOXAPARIN NA (PORCINE) 40 MG/0.4 ML DISP.SYRIN SQ SCH (10:08)
[2018-11-02] MEDS ORDERED: MORPHINE SULFATE 2 MG/ML VIAL IVPUSH PRN (11:14)
--- NOTE | 2018-11-02 12:45 | CON.GU ---
Consult - History of Present Illness History of Present Illness: 43 yo female with recurrent nephrolithiasis, now with persistant left renal colic secondary to a 7mm LPU stone - Past Medical History [employer]: Yes: Migraine, Other (CVA vs sensory migraine) Cardio/Vascular: Yes: Other (denies CO) ...LMP: 03/08/16 Musculoskeletal: Yes: Chronic low back pain - Past Surgical History Past Surgical History: Yes: , Hernia Repair - Alcohol/Substance Use Hx Alcohol Use: No - Smoking History Smoking history: Never smoked Have you smoked in the past 12 months: No Aproximately how many cigarettes per day: 2 If you are a former smoker, when did you quit?: last week - Social History Usual Living Arrangement: With Spouse ADL: Independent History of Recent Travel: No Home Medications - Allergies Allergies/Adverse Reactions: Allergies Allergy/AdvReac Type Severity Reaction Status Date / Time levofloxacin [From Levaquin] Allergy Intermediate Rash Verified 11/01/18 12:02 - Home Medications Home Medications: Ambulatory Orders NK [No Known Home Medication] 11/01/18 Family Disease History - Family Disease History Family Disease History: Diabetes: Father (brain tumor), Mother, Other: Grandparent (brain tumor) Review of Systems - Review of Systems Genitourinary: reports: Flank Pain Physical Exam- Vital Signs: Vital Signs Temperature 97.9 F 11/02/18 06:24 Pulse Rate 69 11/02/18 06:24 Respiratory Rate 20 11/02/18 06:24 Blood Pressure 113/76 11/02/18 06:24 O2 Sat by Pulse Oximetry (%) 99 11/01/18 20:22 Renal/: Yes: Hematuria Labs: CBC, BMP 11/02/18 06:00 11/02/18 06:00 Imaging - Results Cat Scan: Report Reviewed Problem List - Problems (1) Left ureteral stone Assessment/Plan: in light of persistant colic, will plan for cysto/stent placement. pt in agreement Code(s): N20.1 - CALCULUS OF URETER
[2018-11-02] MEDS ORDERED: LIDOCAINE HCL/PF 2% SDV 5ML VIAL ONE (13:03)
[2018-11-02] MEDS ORDERED: MIDAZOLAM HCL 2 MG/2 ML SINGLE DOSE VIAL ONE (13:03)
[2018-11-02] MEDS ORDERED: PROPOFOL 20 ML ONE (13:03)
[2018-11-02] MEDS ORDERED: ceFAZolin SODIUM 1 GM VIAL ONE (13:26)
[2018-11-02] MEDS ORDERED: ceFAZolin SODIUM 1 GM VIAL IVPB ONE (13:28)
[2018-11-02] MEDS ORDERED: DEXAMETHASONE SOD PHOSPHATE 4 MG/1 ML VIAL ONE (13:29)
--- NOTE | 2018-11-02 14:07 | OP ---
DATE OF OPERATION: DATE OF DICTATION: 11/02/2018 PREOPERATIVE DIAGNOSIS: Obstructing left proximal ureteral stone. POSTOPERATIVE DIAGNOSIS: Obstructing left proximal ureteral stone. PROCEDURE: Cystoscopy, retrograde pyelogram, and ureteral stent placement. SURGEON: Vahid Sorto MD INDICATION: The patient is a 43-year-old female with an obstructing left UPJ stone 7 mm in size. In light of persistent colic and failed medical management, the patient was taken to the OR for a cysto and stent placement. The risks, benefits and alternatives were discussed. DESCRIPTION OF PROCEDURE: The patient was taken to the OR and placed supine on the operating table. After cardiac monitoring was administered, general anesthesia was established. She was prepped and draped in the dorsal lithotomy position. The 22-sheath [place] cystoscope was inserted without difficulty and into the bladder. No tumors or stones were noted in the bladder. Attention was turned to the left ureteral orifice and this was intubated with a ureteral catheter. Contrast was injected for a retrograde pyelogram. There was hydronephrosis to the level of the UPJ. A radiopaque stone was not seen so it must have been radiolucent. A guidewire was advanced into the left renal pelvis and over the guidewire a 6-Malawian 24 cm double-tip pigtail stent was then advanced in a monorail fashion. Fluoroscopy confirmed the stent to be in a good position. The patient was then awoken from anesthesia and transferred to the recovery room in stable condition. There were no complications. ESTIMATED BLOOD LOSS: Minimal. Noel [id number]
[2018-11-02] MEDS ORDERED: ONDANSETRON 4 MG/2 ML VIAL IVPUSH PRN (15:04)
--- NOTE | 2018-11-02 16:20 | EKG ---
Test Reason : Blood Pressure : / mmHG Vent. Rate : 076 BPM Atrial Rate : 076 BPM P-R Int : 176 ms QRS Dur : 082 ms QT Int : 386 ms P-R-T Axes : 031 -06 039 degrees QTc Int : 434 ms NORMAL SINUS RHYTHM MODERATE VOLTAGE CRITERIA FOR LVH, MAY BE NORMAL VARIANT BORDERLINE ECG WHEN COMPARED WITH ECG OF 15-MAY-2018 04:54, NO SIGNIFICANT CHANGE WAS FOUND Confirmed by NELDA MCKENZIE, CHRISTY ([id number]) on 11/02/2018 4:19:51 PM Referred By: Confirmed By:CHRISTY LUTZ MD
--- NOTE | 2018-11-02 17:01 | PN ---
Physical Exam: SUBJECTIVE: Patient seen and examined at bedside this morning. Patient is still reporting left flank pain and LLQ pain, slightly relieved by Toradol. Denies fever, chills, nausea, vomiting, headache, chest pain, SOB, diarrhea, urinary symptoms. OBJECTIVE: Vital Signs Period Temp Pulse Resp BP Sys/Ricci Pulse Ox Last 24 Hr 96.9 F-99.0 F 64-82 16-20 113-158/70-94 95-99 GENERAL: The patient is awake, alert, and fully oriented, in no acute distress. EYES: PERRLA, EOMI, sclera anicteric, conjunctiva clear. NECK: Trachea midline, full range of motion, supple. LUNGS: Breath sounds equal, clear to auscultation bilaterally. HEART: Regular rate and rhythm, S1, S2 without murmur, rub or gallop. ABDOMEN: Soft, +LLQ/suprapubic tenderness, nondistended, normoactive bowel sounds, +CVA tenderness. EXTREMITIES: 2+ pulses, warm, well-perfused, no edema. NEUROLOGICAL: Cranial nerves II through XII grossly intact. Normal speech, gait not observed. PSYCH: Normal mood, normal affect. SKIN: Warm, dry, normal turgor, no rashes or lesions noted Laboratory Results - last 24 hr 11/01/18 11/02/18 11/02/18 20:00 06:00 06:00 WBC 6.5 RBC 4.32 Hgb 11.8 Hct 36.0 MCV 83.2 MCH 27.2 MCHC 32.7 RDW 14.4 Plt Count 184 MPV 7.7 Absolute Neuts (auto) 4.5 Neutrophils % 69.8 Lymphocytes % 22.1 D Monocytes % 5.1 Eosinophils % 2.6 Basophils % 0.4 Nucleated RBC % 0 PT with INR INR PTT (Actin FS) Sodium Potassium Chloride Carbon Dioxide Anion Gap BUN Creatinine Creat Clearance w eGFR Random Glucose Hemoglobin A1c % 6.1 Calcium Phosphorus Magnesium Total Bilirubin AST ALT Alkaline Phosphatase Total Protein Albumin Blood Type O POSITIVE 11/02/18 11/02/18 06:00 06:00 WBC RBC Hgb Hct MCV MCH MCHC RDW Plt Count MPV Absolute Neuts (auto) Neutrophils % Lymphocytes % Monocytes % Eosinophils % Basophils % Nucleated RBC % PT with INR 11.30 INR 0.96 PTT (Actin FS) 29.6 Sodium 139 Potassium 4.3 Chloride 110 H Carbon Dioxide 24 Anion Gap 5 L BUN 12 Creatinine 0.6 Creat Clearance w eGFR > 60 Random Glucose 99 Hemoglobin A1c % Calcium 8.0 L Phosphorus 3.2 Magnesium 2.2 Total Bilirubin 0.4 AST 27 ALT 40 Alkaline Phosphatase 65 Total Protein 5.9 L Albumin 3.0 L Blood Type Active Medications Generic Name Dose Route Start Last Admin Trade Name Freq PRN Reason Stop Dose Admin Enoxaparin Sodium 40 mg 11/03/18 10:00 Lovenox - SQ DAILY GILLIAN Fentanyl 50 mcg 11/02/18 15:04 Sublimaze Injection - IVPUSH [id number] PRN PAIN-PACU ORDER X 4 DOSES ONLY Sodium Chloride 1,000 mls @ 100 mls/hr 11/02/18 15:04 Normal Saline - IV ASDIR GILLIAN Morphine Sulfate 1 mg 11/02/18 15:04 Morphine Sulfate IVPUSH Q4H PRN PAIN LEVEL 7 - 10 Ondansetron HCl 4 mg 11/02/18 15:04 Zofran Injection IVPUSH Q6H PRN NAUSEA AND/OR VOMITING ASSESSMENT/PLAN: Patient is a 43 year old female with past medical history of pre-diabetes, asthma, anemia, depression, complicated migraine, nephrolithiasis, presented with intermittent LLQ/Left flank pain for 4 days. #LLQ/left flank pain 2/2 Nephrolithiasis -Spiral CT: 0.7x0.3cm left ureteropelvic junction calculus with resultant mild hydronephrosis. Bilateral inguinal hernias containing fat only. -Urology (Dr. Sorto) consulted. Recommendations appreciated. -In light of persistent colic, will plan for cystoscopy/stent placement. -Pain mgt as per surgery. -IV fluids -Received rocephin at the ED. Hold antibiotics for now. #FEN -IV NS @ 100ml/hr -Electrolytes wnl, routine bmp monitoring -Regular diet as tolerated #Prophylaxis -Lovenox 40mg sq daily #Disposition -full code -admit to med surg Visit type - Emergency Visit Emergency Visit: Yes ED Registration Date: 11/01/18 Care time: The patient presented to the Emergency Department on the above date and was hospitalized for further evaluation of their emergent condition. - New Patient This patient is new to me today: Yes Date on this admission: 11/02/18 - Critical Care Critical Care patient: No
[2018-11-02] MEDS: MORPHINE SULFATE 2 MG/ML VIAL IVPUSH PRN (17:29)
[2018-11-02] MEDS: KETOROLAC TROMETHAMINE 30 MG/1 ML VIAL IVPUSH PRN (18:09)
--- NOTE | 2018-11-02 19:45 | PN ---
Teaching Attending Note Name of Resident: Erin Ortiz ATTENDING PHYSICIAN STATEMENT I saw and evaluated the patient. I reviewed the resident's note and discussed the case with the resident. I agree with the resident's findings and plan as documented. SUBJECTIVE: OBJECTIVE: Vital Signs Temperature 97.3 F L 11/02/18 19:30 Pulse Rate 97 H 11/02/18 19:30 Respiratory Rate 20 11/02/18 19:30 Blood Pressure 135/77 11/02/18 19:30 O2 Sat by Pulse Oximetry (%) 95 11/02/18 15:55 GENERAL: AAOx3, in no acute distress. EYES: PERRLA, EOMI, sclera anicteric, conjunctiva clear. NECK: Trachea midline, full range of motion, supple. LUNGS: Breath sounds equal, clear to auscultation bilaterally. HEART: Regular rate and rhythm, S1, S2 without murmur, rub or gallop. ABDOMEN: Soft, LLQ/suprapubic tenderness, nondistended, normoactive bowel sounds , positive for CVA tenderness. EXTREMITIES: 2+ pulses, warm, well-perfused, no edema. NEUROLOGICAL: Cranial nerves II through XII grossly intact. Normal speech, gait not observed. PSYCH: Normal mood, normal affect. SKIN: Warm, dry, normal turgor, no rashes or lesions noted CBCD WBC 6.5 K/mm3 (4.0-10.0) 11/02/18 06:00 RBC 4.32 M/mm3 (3.60-5.2) 11/02/18 06:00 Hgb 11.8 GM/dL (10.7-15.3) 11/02/18 06:00 Hct 36.0 % (32.4-45.2) 11/02/18 06:00 MCV 83.2 fl (80-96) 11/02/18 06:00 MCHC 32.7 g/dl (32.0-36.0) 11/02/18 06:00 RDW 14.4 % (11.6-15.6) 11/02/18 06:00 Plt Count 184 K/MM3 (134-434) 11/02/18 06:00 MPV 7.7 fl (7.5-11.1) 11/02/18 06:00 CMP Sodium 139 mmol/L (136-145) 11/02/18 06:00 Potassium 4.3 mmol/L (3.5-5.1) 11/02/18 06:00 Chloride 110 mmol/L (98-107) H 11/02/18 06:00 Carbon Dioxide 24 mmol/L (21-32) 11/02/18 06:00 Anion Gap 5 MMOL/L (8-16) L 11/02/18 06:00 BUN 12 mg/dL (7-18) 11/02/18 06:00 Creatinine 0.6 mg/dL (0.55-1.3) 11/02/18 06:00 Creat Clearance w eGFR > 60 (>60) 11/02/18 06:00 Random Glucose 99 mg/dL (74-106) 11/02/18 06:00 Calcium 8.0 mg/dL (8.5-10.1) L 11/02/18 06:00 Total Bilirubin 0.4 mg/dL (0.2-1) 11/02/18 06:00 AST 27 U/L (15-37) 11/02/18 06:00 ALT 40 U/L (13-61) 11/02/18 06:00 Alkaline Phosphatase 65 U/L (45-117) 11/02/18 06:00 Total Protein 5.9 g/dl (6.4-8.2) L 11/02/18 06:00 Albumin 3.0 g/dl (3.4-5.0) L 11/02/18 06:00 Current Medications Generic Name Dose Route Start Last Admin Trade Name Freq PRN Reason Stop Dose Admin Enoxaparin Sodium 40 mg 11/03/18 10:00 Lovenox - SQ DAILY GILLIAN Fentanyl 50 mcg 11/02/18 15:04 Sublimaze Injection - IVPUSH [id number] PRN PAIN-PACU ORDER X 4 DOSES ONLY Sodium Chloride 1,000 mls @ 100 mls/hr 11/02/18 15:04 11/02/18 17:30 Normal Saline - IV 100 mls/hr ASDIR GILLIAN Administration Ketorolac Tromethamine 30 mg 11/02/18 18:02 11/02/18 18:09 Toradol Injection - IVPUSH 11/07/18 18:01 30 mg Q8H PRN Administration PAIN 1-6 Morphine Sulfate 1 mg 11/02/18 15:04 11/02/18 17:29 Morphine Sulfate IVPUSH 1 mg Q4H PRN Administration PAIN LEVEL 7 - 10 Ondansetron HCl 4 mg 11/02/18 15:04 Zofran Injection IVPUSH Q6H PRN NAUSEA AND/OR VOMITING Home Medications Medication Instructions Recorded NK [No Known Home Medication] 11/01/18 Urine Test Results Urine Color Ltyellow 11/01/18 13:15 Urine Appearance Slcloudy 11/01/18 13:15 Urine pH 6.0 (5.0-8.0) 11/01/18 13:15 Ur Specific [place] 1.017 (1.010-1.035) 11/01/18 13:15 Urine Protein 1+ (NEGATIVE) H 11/01/18 13:15 Urine Glucose (UA) Negative (NEGATIVE) 11/01/18 13:15 Urine Ketones Negative (NEGATIVE) 11/01/18 13:15 Urine Blood 3+ (NEGATIVE) H 11/01/18 13:15 Urine Nitrite Negative (NEGATIVE) 11/01/18 13:15 Urine Bilirubin Negative (<2.0 mg/dL) 11/01/18 13:15 Ur Leukocyte Esterase Negative (NEGATIVE) 11/01/18 13:15 Ur Epithelial Cells Rare /HPF (FEW) 11/01/18 13:15 Urine Mucus Rare 11/01/18 13:15 Microbiology 11/01/18 13:00 Urine - Urine Clean Catch Urine Culture - Final NO GROWTH OBTAINED Spiral CT: 0.7x0.3cm left ureteropelvic junction calculus with resultant mild hydronephrosis. Bilateral inguinal hernias containing fat only. ASSESSMENT AND PLAN: Patient is a 43 year old female with past medical history of pre-diabetes, asthma, anemia, depression, complicated migraine, nephrolithiasis, presented with LLQ/Left flank pain for 4 days. #LLQ/left flank pain due to Nephrolithiasis , patient is going for an stent placement. Urology (Dr. Sorto) appreciated. pain control, IV fluids, Received rocephin at the ED. Hold further antibiotics for now. DVT Px: Lovenox 40mg sq
[2018-11-03] MEDS: MORPHINE SULFATE 2 MG/ML VIAL IVPUSH PRN (00:58)
[2018-11-03] MEDS: SODIUM CHLORIDE 1,000 ML IV SCH (01:05)
[2018-11-03] MEDS: KETOROLAC TROMETHAMINE 30 MG/1 ML VIAL IVPUSH PRN (07:09)
[2018-11-03] MEDS ORDERED: ACETAMINOPHEN 325 MG TABLET (FP) PO PRN (07:56)
[2018-11-03] MEDS ORDERED: oxyCODONE HCL 5 MG TABLET PO PRN ×3 (07:57→09:55)
[2018-11-03 07:58] LABS: BASO % 0.2 % (0-2.0); EOS % 0.2 % (0-4.5); HEMATOCRIT 36.1 % (32.4-45.2); HEMOGLOBIN 12.6 GM/dL (10.7-15.3); LYMPH % 12.6 % (8-40); MCH 28.8 pg (25.7-33.7); MCHC 34.9 g/dl (32.0-36.0); MEAN CELL VOLUME 82.4 fl (80-96); MEAN PLT VOLUME 8.5 fl (7.5-11.1); MONO % 4.9 % (3.8-10.2); NEUT % 82.1 % (42.8-82.8); PLATELET COUNT 225 K/MM3 (134-434); RBC 4.38 M/mm3 (3.60-5.2); RDW 14.3 % (11.6-15.6)
[2018-11-03 08:03] LABS: ANION GAP 9 MMOL/L (8-16); BLOOD UREA NITROGEN 12 mg/dL (7-18); CALCIUM 8.5 mg/dL (8.5-10.1); CHLORIDE 108 mmol/L (98-107); CO2 21 mmol/L (21-32); CREATININE 0.6 mg/dL (0.55-1.3); GLUCOSE,RANDOM 121 mg/dL (74-106); MAGNESIUM 2.1 mg/dL (1.8-2.4); POTASSIUM 4.3 mmol/L (3.5-5.1); SODIUM 138 mmol/L (136-145)
[2018-11-03] MEDS ORDERED: ENOXAPARIN NA (PORCINE) 40 MG/0.4 ML DISP.SYRIN SQ SCH (10:00)
[2018-11-03] MEDS ORDERED: CEFTRIAXONE 1 GM in DEXTROSE 5%-WATER - 50 ML IVPB ONE (11:09)
[2018-11-03] MEDS ORDERED: PHENAZOPYRIDINE HCL 100 MG TABLET (FP) PO ONE (11:12)
--- NOTE | 2018-11-03 12:04 | PN ---
Progress Note (short form) - Note Progress Note: s/p stent yestrday c/o stent colic otherwise feels ok afebrile stable for discharge plan for lithotripsy next week home today with keflex,pyridium,analgesics Problem List - Problems (1) Left ureteral stone Code(s): N20.1 - CALCULUS OF URETER
[2018-11-03] MEDS ORDERED: PT OWN MED DRAWER 7, Y5N ONE ×2 (12:12→12:45)
[2018-11-03] MEDS ORDERED: cefTRIAXone SODIUM 1 GM VIAL ONE (12:12)
[2018-11-03] MEDS ORDERED: DEXTROSE 5%-WATER - 50 ML IVPB ONE (12:13)
[2018-11-03 13:36] VITALS: BP 145/87; PULSE 67; TEMP 98.1
--- NOTE | 2018-11-03 13:54 | DS ---
Physical Exam: SUBJECTIVE: Patient seen and examined at bedside this morning. No acute events overnight. POD1 cystoscopy/stent placement. Patient reported some flank pain/ discomfort relieved by analgesics. She also reported burning and some hematuria. Denies fever, chills, nausea, vomiting, headache, chest pain, SOB. OBJECTIVE: Vital Signs Period Temp Pulse Resp BP Sys/Ricci Pulse Ox Last 24 Hr 97.3 F-98.2 F 64-97 16-20 116-158/57-87 95-95 PHYSICAL EXAM GENERAL: The patient is awake, alert, and fully oriented, in no acute distress. EYES: PERRLA, EOMI, sclera anicteric, conjunctiva clear. NECK: Trachea midline, full range of motion, supple. LUNGS: Breath sounds equal, clear to auscultation bilaterally. HEART: Regular rate and rhythm, S1, S2 without murmur, rub or gallop. ABDOMEN: Soft, nontender, nondistended, normoactive bowel sounds EXTREMITIES: 2+ pulses, warm, well-perfused, no edema. NEUROLOGICAL: Cranial nerves II through XII grossly intact. Normal speech, gait not observed. PSYCH: Normal mood, normal affect. SKIN: Warm, dry, normal turgor, no rashes or lesions noted LABS Laboratory Results - last 24 hr 11/03/18 11/03/18 06:30 06:30 WBC 11.0 H RBC 4.38 Hgb 12.6 Hct 36.1 MCV 82.4 MCH 28.8 MCHC 34.9 RDW 14.3 Plt Count 225 D MPV 8.5 D Absolute Neuts (auto) 9.0 H Neutrophils % 82.1 Lymphocytes % 12.6 D Monocytes % 4.9 Eosinophils % 0.2 D Basophils % 0.2 Nucleated RBC % 0 Sodium 138 Potassium 4.3 Chloride 108 H Carbon Dioxide 21 Anion Gap 9 BUN 12 Creatinine 0.6 Creat Clearance w eGFR > 60 Random Glucose 121 H Calcium 8.[address]: 0.7x0.3cm left ureteropelvic junction calculus with resultant mild hydronephrosis. Bilateral inguinal hernias containing fat only. HOSPITAL COURSE: Date of Admission:11/01/18 Date of Discharge: 11/03/18 Patient is a 43 year old female with past medical history of pre-diabetes, asthma, anemia, depression, complicated migraine, nephrolithiasis, presented with intermittent LLQ/Left flank pain for [address] was done which showed left ureteropelvic junction calculus. Urology was consulted. Patient underwent cystoscopy/stent placement. Patient tolerated the procedure well. She was discharged with instructions to take Keflex and Pyridium for 10 days and to follow-up with Dr. Sorto after 1 week. Minutes to complete discharge: 40 Discharge Summary Reason For Visit: CALCULUS OF KIDNEY Condition: Improved - Instructions Diet, Activity, Other Instructions: Your visit You were admitted to the hospital because you had left lower belly and back pain. CAT scan was done which showed you had a kidney stone. You were seen by the urologist (Dr. Sorto), and you had a stent placed on your urinary tract. Medications Please take the following medication as prescribed: 1. Pyridium 200mg twice a day for 10 days. 2. Keflex 500mg three times a day for 10 days. 3. Tylenol 650mg every 6 hours as needed for pain. Continue your other home medications. Follow-ups -Follow-up with the urologist (Dr. Sorto). You are schedule next ( 11/09/18). Please call the office to schedule. -Please follow up with Dr. Arias within 1 week. Additional info Call 911 or go to the ED if with any worsening fever, chills, nausea, vomiting, chest pain, shortness of breath, belly pain, diarrhea or any new concerns noted. Referrals: Mart Arias MD [Primary Care Provider] - 1 Week Vahid Sorto MD [Staff Physician] - 1 Week Disposition: HOME - Home Medications Comprehensive Discharge Medication List: Ambulatory Orders Acetaminophen 650 mg PO Q6H #10 solution 11/03/18 Cephalexin [Keflex] 500 mg PO TID #30 capsule 11/03/18 Phenazopyridine HCl [Pyridium] 200 mg PO BID #20 tablet 11/03/18 This patient is new to me today: No Emergency Visit: Yes ED Registration Date: 11/01/18 Care time: The patient presented to the Emergency Department on the above date and was hospitalized for further evaluation of their emergent condition. Critical Care patient: No - Discharge Referral Referred to [facility] No
--- NOTE | 2018-11-03 15:21 | PN ---
Teaching Attending Note Name of Resident: Erin Ortiz ATTENDING PHYSICIAN STATEMENT I saw and evaluated the patient. I reviewed the resident's note and discussed the case with the resident. I agree with the resident's findings and plan as documented. SUBJECTIVE: Patient has no further pain,no nausea or vomiting. no shortness of breath. OBJECTIVE: Vital Signs Temperature 98.1 F 11/03/18 10:00 Pulse Rate 67 11/03/18 10:00 Respiratory Rate 20 11/03/18 10:00 Blood Pressure 145/87 11/03/18 10:00 O2 Sat by Pulse Oximetry (%) 95 11/03/18 09:00 GENERAL: AAOx3, in no acute distress. EYES: PERRLA, EOMI, sclera anicteric, conjunctiva clear. NECK: Trachea midline, full range of motion, supple. LUNGS: Breath sounds equal, clear to auscultation bilaterally. HEART: Regular rate and rhythm, S1, S2 without murmur, rub or gallop. ABDOMEN: Soft, LLQ/suprapubic tenderness, nondistended, normoactive bowel sounds , positive for CVA tenderness. EXTREMITIES: 2+ pulses, warm, well-perfused, no edema. NEUROLOGICAL: Cranial nerves II through XII grossly intact. Normal speech, gait not observed. PSYCH: Normal mood, normal affect. SKIN: Warm, dry, normal turgor, no rashes or lesions noted CBCD WBC 11.0 K/mm3 (4.0-10.0) H 11/03/18 06:30 RBC 4.38 M/mm3 (3.60-5.2) 11/03/18 06:30 Hgb 12.6 GM/dL (10.7-15.3) 11/03/18 06:30 Hct 36.1 % (32.4-45.2) 11/03/18 06:30 MCV 82.4 fl (80-96) 11/03/18 06:30 MCHC 34.9 g/dl (32.0-36.0) 11/03/18 06:30 RDW 14.3 % (11.6-15.6) 11/03/18 06:30 Plt Count 225 K/MM3 (134-434) D 11/03/18 06:30 MPV 8.5 fl (7.5-11.1) D 11/03/18 06:30 CMP Sodium 138 mmol/L (136-145) 11/03/18 06:30 Potassium 4.3 mmol/L (3.5-5.1) 11/03/18 06:30 Chloride 108 mmol/L (98-107) H 11/03/18 06:30 Carbon Dioxide 21 mmol/L (21-32) 11/03/18 06:30 Anion Gap 9 MMOL/L (8-16) 11/03/18 06:30 BUN 12 mg/dL (7-18) 11/03/18 06:30 Creatinine 0.6 mg/dL (0.55-1.3) 11/03/18 06:30 Creat Clearance w eGFR > 60 (>60) 11/03/18 06:30 Random Glucose 121 mg/dL (74-106) H 11/03/18 06:30 Calcium 8.5 mg/dL (8.5-10.1) 11/03/18 06:30 Total Bilirubin 0.4 mg/dL (0.2-1) 11/02/18 06:00 AST 27 U/L (15-37) 11/02/18 06:00 ALT 40 U/L (13-61) 11/02/18 06:00 Alkaline Phosphatase 65 U/L (45-117) 11/02/18 06:00 Total Protein 5.9 g/dl (6.4-8.2) L 11/02/18 06:00 Albumin 3.0 g/dl (3.4-5.0) L 11/02/18 06:00 Home Medications Medication Instructions Recorded Cephalexin [Keflex] 500 mg PO TID #30 capsule 11/03/18 Phenazopyridine HCl [Pyridium] 200 mg PO BID #20 tablet 11/03/18 RX: Acetaminophen 650 mg PO Q6H #10 solution 11/03/18 11/01/18 13:00 Urine - Urine Clean Catch Urine Culture - Final NO GROWTH OBTAINED Spiral CT: 0.7x0.3cm left ureteropelvic junction calculus with resultant mild hydronephrosis. Bilateral inguinal hernias containing fat only. ASSESSMENT AND PLAN: Patient is a 43 year old female with past medical history of pre-diabetes, asthma, anemia, depression, complicated migraine, nephrolithiasis, presented with LLQ/Left flank pain for 4 days. #LLQ/left flank pain due to Nephrolithiasis improved post stent placement by Urology (Dr. Sorto). will give her one more dose of iV rocephin AND discharge her on po keflx for 10 days and give her Pyridium for 200mg as per . will discharge patient home.
== END 2018-11-03 13:31 | disposition home or self-care (01) | DRG 465 ==
LOC: JER 11:48 → JERBED 16:32 → J8W 20:24
PROVIDERS: ADMIT Internal Medicine; ATTEND Internal Medicine
PROC: 0T778DZ Dilation of Left Ureter with Intraluminal Device, Via Natural or Artificial Opening Endoscopic (ICD-10-PCS; principal; 2018-11-02 13:00)
PROC: BT1FYZZ Fluoroscopy of Left Kidney, Ureter and Bladder using Other Contrast (ICD-10-PCS; 2018-11-02 13:00)
DX: N13.0 Hydronephrosis with ureteropelvic junction obstruction (principal); D64.9 Anemia, unspecified; F32.9 Major depressive disorder, single episode, unspecified; M54.9 Dorsalgia, unspecified; R73.03 Prediabetes; J45.909 Unspecified asthma, uncomplicated; R31.9 Hematuria, unspecified; E66.9 Obesity, unspecified; Z68.39 Body mass index [BMI] 39.0-39.9, adult; G43.909 Migraine, unspecified, not intractable, without status migrainosus; K40.20 Bilateral inguinal hernia, without obstruction or gangrene, not specified as recurrent
CPT/HCPCS: 36415; 74176; 76000-TC-FY; 80048; 80053; 81003; 81015; 83036; 83735; 84100; 84703; 85025; 85610; 85730; 86850; 86900; 86901; 87086; 93005; 93010; 94760; 99282-25; J7030

== ENCOUNTER 2018-11-09 09:40 | Day surgery (SDC) | payer OTHER ==
[2018-11-08 17:32] VITALS: BMI 38.5
[2018-11-09] MEDS ORDERED: MIDAZOLAM HCL 2 MG/2 ML SINGLE DOSE VIAL ONE (11:30)
[2018-11-09] MEDS ORDERED: PROPOFOL 20 ML ONE (11:30)
[2018-11-09] MEDS ORDERED: ceFAZolin SODIUM 1 GM VIAL IVPB ONE (11:42)
[2018-11-09] MEDS ORDERED: IOHEXOL 300 MG/ML INFUS..BTL IV ONE (11:51)
[2018-11-09] MEDS ORDERED: DEXAMETHASONE SOD PHOSPHATE 4 MG/1 ML VIAL ONE (11:59)
[2018-11-09] MEDS ORDERED: KETOROLAC TROMETHAMINE 30 MG/1 ML VIAL ONE (11:59)
[2018-11-09] MEDS ORDERED: FUROSEMIDE 40 MG/4 ML INJECTABLE VIAL ONE (12:09)
[2018-11-09] MEDS ORDERED: FUROSEMIDE 10 MG/1 ML VIAL (4 ML VIAL) IVPUSH ONE (12:09)
[2018-11-09] MEDS ORDERED: oxyCODONE HCL 5 MG TABLET PO PRN ×2 (12:29→12:32)
[2018-11-09] MEDS ORDERED: DEXTROSE 5%-0.45% SALINE 1,000 ML IV SCH (12:30)
[2018-11-09] MEDS ORDERED: PROMETHAZINE HCL 25 MG/1 ML VIAL IVPUSH PRN (12:32)
[2018-11-09] MEDS ORDERED: ONDANSETRON 4 MG/2 ML VIAL IVPUSH PRN (12:32)
--- NOTE | 2018-11-09 12:32 | OP ---
Operative Note - Note: Operative Date: 11/09/18 Pre-Operative Diagnosis: left UPJ stone Operation: ureteroscopy/laser litho Post-Operative Diagnosis: Same as Pre-op Surgeon: Vahid Sorto Anesthesia: General Operative Report Dictated: Yes
--- NOTE | 2018-11-09 13:20 | OP ---
DATE OF OPERATION: 11/09/2018 PREOPERATIVE DIAGNOSIS: Left ureteropelvic junction stone. POSTOPERATIVE DIAGNOSIS: Left ureteropelvic junction stone. PROCEDURE: Cystoscopy, ureteroscopy, laser lithotripsy stone, and stent replacement. SURGEON: Lalita Atkinson MD INDICATIONS: Patient is a 43-year-old female who had a stent placement a week prior for an obstructing stone in the left UPJ. She is now taken to the OR for a laser lithotripsy. The risks, benefits, and alternatives were discussed at length. DESCRIPTION OF PROCEDURE: After informed consent was obtained, the patient was taken to the OR, placed supine on the operating table. After cardiac monitoring was administered and general anesthesia was established, she was prepped and draped in dorsal lithotomy position. The rigid cystoscope was introduced without difficulty. Stent was seen emanating from the left ureteral orifice. Alongside the stent, a guidewire was advanced into the left renal pelvis, and stone was radiopaque. It could be seen on the UPJ. The existing stent was then grasped and brought out through the urethral meatus, and it was cannulated with another guidewire, and then, stent was removed in its entirety. Over one of the wires, a flexible ureteroscope was advanced into UPJ where the stone was noted. Using a 365 micron laser fiber to find and stone pulverized to fine dust and 1-2-mm fragments until the entire stone burden was disintegrated. The inspection of the collecting system revealed no other stone fragments. Ureteroscope was then removed, and a 7-Yoruba 24-cm double pigtail stent was then advanced in a monorail fashion. Fluoroscopy confirmed this stent to be in good position. Patient was then awoken from anesthesia and transferred to recovery room in stable condition. There were no complications. Estimated blood loss minimal. LALITA ATKINSON M.D. [id number]
[2018-11-09 16:41] VITALS: BP 139/63; PULSE 89
[2018-11-09 16:49] VITALS: TEMP 97.8
--- NOTE | 2018-11-13 17:06 | PATH ---
Surgical Pathology Report Patient Name: TYREE AGUILAR Med. Rec. #: [id number] /Age/Gender: 1975 (Age: 43) / F Account: [id number] Location: [facility] Taken: 11/09/2018 Received: 11/09/2018 Reported: 11/13/2018 Physicians: Vahid Sorto M.D. Specimen(s) Received LEFT URETERAL STENT Clinical History Left ureteral stone Final Diagnosis LEFT URETERAL STENT, REMOVAL: SEGMENT OF URETERAL STENT, GROSS EXAMINATION ONLY. Electronically Signed Yumiko Kevin M.D. Gross Description Received fresh labeled "left ureteral stent," is a 36 cm in length green, coiled portion of tubing, consistent with a ureteral stent. No soft tissue is present. No sections are submitted, gross only. DL/11/09/201811/09/2018
== END 2018-11-09 16:50 | disposition home or self-care (01) ==
LOC: JASU-SURG 09:40
PROVIDERS: ATTEND Urology
PROC: 0TF78ZZ Fragmentation in Left Ureter, Via Natural or Artificial Opening Endoscopic (ICD-10-PCS; principal; 2018-11-09 11:00)
PROC: 0T778DZ Dilation of Left Ureter with Intraluminal Device, Via Natural or Artificial Opening Endoscopic (ICD-10-PCS; 2018-11-09 11:00)
DX: N20.1 Calculus of ureter (principal)
CPT/HCPCS: 76000-TC-FY; 88300-TC; 94760

== ENCOUNTER 2018-12-14 04:55 | Day surgery (SDC) | payer OTHER ==
[2018-12-12 17:47] VITALS: BMI 38.5
[2018-12-14] MEDS ORDERED: MIDAZOLAM HCL 2 MG/2 ML SINGLE DOSE VIAL ONE (09:26)
[2018-12-14] MEDS ORDERED: ceFAZolin SODIUM 1 GM VIAL ONE (09:28)
[2018-12-14] MEDS ORDERED: GENTAMICIN SO4 80 MG/2 ML VIAL ONE (09:28)
[2018-12-14] MEDS ORDERED: SODIUM CHLORIDE 0.9% P/F 10 ML VIAL IJ ONE (09:29)
[2018-12-14] MEDS ORDERED: GENTAMICIN 80MG PREMIX BAG IVPB ONE (09:41)
[2018-12-14] MEDS ORDERED: DEXAMETHASONE SOD PHOSPHATE 4 MG/1 ML VIAL ONE (09:46)
[2018-12-14] MEDS ORDERED: ceFAZolin SODIUM 1 GM VIAL IVPB ONE (09:47)
[2018-12-14] MEDS ORDERED: LIDOCAINE HCL/PF 2% SDV 5ML VIAL ONE (09:49)
[2018-12-14] MEDS ORDERED: PROPOFOL 20 ML ONE ×2 (09:49→10:31)
[2018-12-14] MEDS ORDERED: IOHEXOL 300 MG/ML INFUS..BTL IV ONE ×2 (10:04)
[2018-12-14] MEDS ORDERED: oxyCODONE HCL 5 MG TABLET PO PRN ×2 (10:13→11:11)
[2018-12-14] MEDS ORDERED: ONDANSETRON 4 MG/2 ML VIAL IVPUSH PRN (10:13)
[2018-12-14] MEDS ORDERED: LACTATED RINGERS SOLUTION 1,000 ML IV SCH (10:15)
[2018-12-14] MEDS ORDERED: ePHEDrine SULFATE 50 MG/1 ML AMPULE ONE (10:16)
[2018-12-14] MEDS ORDERED: SUCCINYLCHOLINE CHLORIDE 200 MG/10 ML VIAL ONE (10:32)
--- NOTE | 2018-12-14 11:14 | OP ---
Operative Note - Note: Operative Date: 12/14/18 Pre-Operative Diagnosis: left hydronephrosis Operation: cysto/left6 ureteroscopy, incision/dilation of LUVJ stricture Post-Operative Diagnosis: Same as Pre-op Anesthesia: General Estimated Blood Loss (mls): 5 Drains & Tubes with Location: 8fr, 22cm stent Operative Report Dictated: Yes
[2018-12-14] MEDS ORDERED: ELECTROLYTE-148 SOLN 1,000 ML IV SCH (11:15)
[2018-12-14] MEDS ORDERED: KETOROLAC TROMETHAMINE 30 MG/1 ML VIAL ONE (11:56)
[2018-12-14] MEDS ORDERED: KETOROLAC TROMETHAMINE 30 MG/1 ML VIAL IVPUSH ONE (12:30)
[2018-12-14 12:53] VITALS: PULSE 90
[2018-12-14] MEDS ORDERED: oxyCODONE HCL 5 MG TABLET ONE (14:04)
[2018-12-14 15:10] VITALS: BP 135/67; TEMP 98
--- NOTE | 2018-12-15 00:08 | OP ---
DATE OF OPERATION: 12/14/2018 PREOPERATIVE DIAGNOSIS: Left hydronephrosis. POSTOPERATIVE DIAGNOSIS: Stricture of left ureterovesical junction. PROCEDURE: Cystoscopy, ureteroscopy, cold knife incision of ureterovesical junction stricture, balloon dilation and stent placement. SURGEON: Vahid Sorto MD INDICATIONS: The patient is a 43-year-old female with history of nephrolithiasis, most recently noted to have persistent pain with urination and some flank pain as well as hematuria that persisted, even after a stent was removed after lithotripsy. A repeat scan showed left hydronephrosis down to the level of the bladder. Due to persistent pain, the patient consented to go to the OR for cystourethroscopy and determine the nature of the problem and any indicated procedures. DESCRIPTION OF PROCEDURE: Patient taken to the OR and placed supine on the table. After cardiac monitors and general anesthesia were administered, she was prepped and draped in the dorsal lithotomy position. The rigid ureteroscope was inserted without difficulty and the bladder was visualized. There was a lot of edema at the level right around the left ureteral orifice, but a central guidewire was placed easily into the orifice and into the left renal pelvis. Contrast was injected and there appeared to be some mild narrowing at the UVJ area. There are no filling defects noted. The ureteroscope was advanced and there was some mild narrowing at the UVJ with slight difficulty in getting the scope into the UVJ. Once I passed the UVJ and intramural ureter, the scope advanced easily. I would say there was a very mild narrowing there, not well appreciated on the retrograde pyelogram. At this point, with no other pathology noted, a second wire was placed into the ureter and between the 2 wires, using a cold knife the UVJ was cut at the 12 o'clock position just between the 2 wires, using that as a guide. A very small cut was made, I would estimate approximately 3 mm to 4 mm in length. There was some bleeding at the cut site and using pinpoint cautery the bleeding was stopped. At this point, then using a ureteral dilating balloon, the ureteral dilating balloon was advanced over one of the wires and ureter dilated under very low pressure of only 4 mmHg. Dilation occurred without difficulty under active fluoroscopy. There was no tightness noted upon dilation and no resistance for that matter either. The balloon was then removed and an 8-[place]uvian 22-cm double pigtail stent was then advanced in the normal fashion over the remaining guidewire. Fluoroscopy confirmed the stent in good position. A Sanchez catheter was then placed. Patient was woken from anesthesia and transferred to the recovery room in stable condition. There were no complications. Estimated blood loss was minimal. Noel [id number]
== END 2018-12-14 15:11 | disposition home or self-care (01) ==
LOC: JASU-SURG 04:55
PROVIDERS: ATTEND Urology
PROC: 0T778DZ Dilation of Left Ureter with Intraluminal Device, Via Natural or Artificial Opening Endoscopic (ICD-10-PCS; principal; 2018-12-14 09:30)
PROC: 0T778DZ Dilation of Left Ureter with Intraluminal Device, Via Natural or Artificial Opening Endoscopic (ICD-10-PCS; 2018-12-14 09:30)
DX: N13.1 Hydronephrosis with ureteral stricture, not elsewhere classified (principal); R30.9 Painful micturition, unspecified
CPT/HCPCS: 76000-TC-FY; 94760

== ENCOUNTER 2019-08-21 18:21 | Emergency (ER) | payer OTHER ==
[2019-08-21] MEDS ORDERED: KETOROLAC TROMETHAMINE 30 MG/1 ML VIAL IVPUSH ONE (18:37)
[2019-08-21] MEDS ORDERED: SODIUM CHLORIDE 1,000 ML IV STA (18:38)
[2019-08-21 18:46] VITALS: TEMP 98.4; BMI 35.0
[2019-08-21] MEDS ORDERED: KETOROLAC TROMETHAMINE 30 MG/1 ML VIAL ONE (18:57)
--- NOTE | 2019-08-21 19:09 | PDOC ---
History of Present Illness - General Chief Complaint: Pain Stated Complaint: ABD PAIN Time Seen by Provider: 08/21/19 19:08 - History of Present Illness Initial Comments: 08/21/19 19:10 Ms. Pickens is a 44 yo female w/ pmh of DMII, asthma, anemia, depression, chronic left back pain and multiple kidney stones requiring stenting in the past (s/p hysterectomy) who presents for evaluation of Left sided flank pain since yesterday. Patient reports it is similar to her previous kidney stones. Endorses nausea however denies other symptoms at this time. Presents as pain has not improved and she was advised by urology to present to ER. The patient denies chest pain, shortness of breath, headache and dizziness. Denies vomit, fever, chills, diarrhea and constipation. Denies dysuria, frequency, urgency and hematuria. Urologist: Macario Past History - Past Medical History Allergies/Adverse Reactions: Allergies Allergy/AdvReac Type Severity Reaction Status Date / Time levofloxacin [From Levaquin] Allergy Intermediate Rash Verified 08/21/19 18:57 Home Medications: Ambulatory Orders Oxycodone HCl/Acetaminophen [Percocet 5-325 mg Tablet] 1 tab PO Q6H #12 tablet MDD 4 08/22/19 Anemia: Yes Asthma: Yes Cancer: No Cardiac Disorders: No CVA: No COPD: No CHF: No DVT: No Dementia: No Diabetes: Yes (prediabetes) GI Disorders: No Disorders: Yes (kidney stones; stent placed and removed) HTN: No Hypercholesterolemia: No Liver Disease: No Psychiatric Problems: Yes (depression) Seizures: No Thyroid Disease: No - Surgical History Abdominal Surgery: Yes (hernia) Appendectomy: No Cardiac Surgery: No Cholecystectomy: No Lung Surgery: No Neurologic Surgery: No Orthopedic Surgery: No - Immunization History Immunization Up to Date: No - Psycho Social/Smoking Cessation Hx Smoking History: Current every day smoker Have you smoked in the past 12 months: Yes Number of Cigarettes Smoked Daily: 5 If you are a former smoker, when did you quit?: last week Information on smoking cessation initiated: No 'Breaking Loose' booklet given: 12/12/18 Hx Alcohol Use: No Drug/Substance Use Hx: No Substance Use Type: None Hx Substance Use Treatment: No Review of Systems - Review of Systems Comments:: 08/21/19 19:24 GENERAL/CONSTITUTIONAL: No fever or chills. No weakness. HEAD, EYES, EARS, NOSE AND THROAT: No change in vision. No ear pain or discharge. No sore throat. CARDIOVASCULAR: No chest pain or shortness of breath RESPIRATORY: No cough, wheezing, or hemoptysis. GASTROINTESTINAL: +Nausea as described, no vomiting, diarrhea or constipation. GENITOURINARY: +Left flank pain; No dysuria, frequency, or change in urination. MUSCULOSKELETAL: No joint or muscle swelling or pain. No neck or back pain. SKIN: No rash NEUROLOGIC: No headache, vertigo, loss of consciousness, or change in strength/ sensation. ENDOCRINE: No increased thirst. No abnormal weight change HEMATOLOGIC/LYMPHATIC: No anemia, easy bleeding, or history of blood clots. ALLERGIC/IMMUNOLOGIC: No hives or skin allergy. *Physical Exam - Vital Signs Last Vital Signs Temp Pulse Resp BP Pulse Ox 98.4 F 84 18 160/95 98 08/21/19 18:44 08/21/19 18:44 08/21/19 18:44 08/21/19 18:44 08/21/19 18:44 - Physical Exam Comments: 08/21/19 19:25 GENERAL: Awake, alert, and fully oriented, in no acute distress HEAD: No signs of trauma, normocephalic, atraumatic EYES: PERRLA, EOMI, sclera anicteric, conjunctiva clear ENT: Auricles normal inspection, hearing grossly normal, nares patent, oropharynx clear without exudates. Moist mucosa NECK: Normal ROM, supple, no lymphadenopathy, JVD, or masses LUNGS: No distress, speaks full sentences, clear to auscultation bilaterally HEART: Regular rate and rhythm, normal S1 and S2, no murmurs, rubs or gallops, peripheral pulses normal and equal bilaterally. ABDOMEN: +Left flank radiating to lower abdomen TTP. Soft, normoactive bowel sounds. No guarding, no rebound. No masses EXTREMITIES: Normal inspection, Normal range of motion, no edema. No clubbing or cyanosis. NEUROLOGICAL: Cranial nerves II through XII grossly intact. Normal speech, normal gait, no focal sensorimotor deficits SKIN: Warm, Dry, normal turgor, no rashes or lesions noted. ED Treatment Course - LABORATORY CBC & Chemistry Diagram: 08/21/19 19:00 08/21/19 19:00 Medical Decision Making - Medical Decision Making 08/21/19 20:46 Ms. Pickens is a 44 yo female w/ pmh as described who presents for evaluation of symptoms concerning for kidney stone vs. intra-abdominal process vs. UTI. Patient evaluated w/ labs as below as well as spiral CT. Patient imaging significant for 4.1 cm L pelvic cyst possible ovarian in origin. US ordered for further evaluation. Pelvic exam done which revealed significant L sided pelvic tenderness; unable to visualize w/ speculum exam as patient unable to tolerate however os closed, no CMT. Patient will proceed to US w/ IV morphine for pain control. 08/21/19 21:09 EKG normal sinus rhythm. 08/21/19 22:34 5.6x4.7cm L ovarian cyst noted. 08/21/19 23:40 Discussed patient with [employer] MACHINE OPERATOR who will evaluate in ED given patient's ongoing pain. 08/22/19 00:20 Patient evaluated by [facility] MACHINE OPERATOR who believe pain could be 2/2 to adhesions. Patient reporting resolution of pain and would like to go home. [facility] MACHINE OPERATOR ok with discharge and outpatient evaluation. Discharging with pain medication for further symptoms. Discharge - Discharge Information Problems reviewed: Yes Clinical Impression/Diagnosis: Pelvic pain Ovarian cyst Qualifiers: Laterality: left Qualified Code(s): N83.202 - Unspecified ovarian cyst, left side Disposition: HOME - Follow up/Referral Referrals: Mart Arias MD [Primary Care Provider] - - Patient Discharge Instructions Patient Printed Discharge Instructions: DI for Ovarian Cyst Additional Instructions: You were evaluated today in the ER for your pain. We performed CT scan and ultrasound evaluation and found an ovarian cyst on your left ovary 5.6x4.7cm. You were evaluated by [facility] MACHINE OPERATOR who do not believe any emergent process is occurring and you reported improvement of your symptoms. We also sent a proscription to your pharmacy for pain. Take all medications as proscribed. Follow-up with [facility] MACHINE OPERATOR tomorrow for further evaluation. Return to ER if any uncontrollable pain, fever, chills, or other concerning symptoms. - Post Discharge Activity
[2019-08-21 19:19] LABS: BASO % 0.9 % (0-2.0); EOS % 1.3 % (0-4.5); HEMATOCRIT 38.3 % (32.4-45.2); HEMOGLOBIN 12.4 GM/dL (10.7-15.3); LYMPH % 18.6 % (8-40); MCH 27.4 pg (25.7-33.7); MCHC 32.3 g/dl (32.0-36.0); MEAN CELL VOLUME 84.9 fl (80-96); MONO % 4.7 % (3.8-10.2); NEUT % 74.5 % (42.8-82.8); PLATELET COUNT 246 K/MM3 (134-434); RBC 4.51 M/mm3 (3.60-5.2); RDW 15.1 % (11.6-15.6); WHITE BLOOD COUNT 10.2 K/mm3 (4.0-10.0)
[2019-08-21] MEDS ORDERED: ONDANSETRON 4 MG/2 ML VIAL IVPUSH ONE (19:22)
[2019-08-21] MEDS ORDERED: ONDANSETRON 4 MG/2 ML VIAL ONE (19:24)
[2019-08-21 19:26] LABS: PH,URINE 7.5 (5.0-8.0); URINE APPEARANCE CLEAR; URINE BILIRUBIN NEGATIVE (NEGATIVE); URINE COLOR YELLOW; URINE GLUCOSE (UA) NEGATIVE (NEGATIVE); URINE KETONE NEGATIVE (NEGATIVE); URINE LEUK ESTERASE NEGATIVE (NEGATIVE); URINE NITRITE NEGATIVE (NEGATIVE); URINE PROTEIN NEGATIVE (NEGATIVE); URINE UROBILINOGEN 0.2 mg/dL (0.2-1.0)
--- NOTE | 2019-08-21 19:48 | PDOC ---
Attending Attestation - Resident Resident Name: Yonas Wellington - ED Attending Attestation I have performed the following: I have examined & evaluated the patient, The case was reviewed & discussed with the resident, I agree w/resident's findings & plan - HPI HPI: 08/21/19 22:05 see resident hpi - Physicial Exam PE: 08/21/19 22:05 agree with resident exam - Medical Decision Making 08/21/19 22:05 44-year-old female with left lower quadrant/left pelvic pain CT scan shows a small intrarenal stone with no ureteral or evidence of recently passed stone Pelvic ultrasound performed due to left ovarian finding on CT Pelvic exam does not suggest infectious cause Plan for SALES ACCOUNT ASSOCIATE consultation pending ultrasound results
[2019-08-21 19:56] LABS: ALBUMIN 3.6 g/dl (3.4-5.0); BILIRUBIN,TOTAL 0.2 mg/dL (0.2-1); BLOOD UREA NITROGEN 13.2 mg/dL (7-18); CALCIUM 9.2 mg/dL (8.5-10.1); CREATININE 0.8 mg/dL (0.55-1.3); TOT PROT 7.3 g/dl (6.4-8.2)
[2019-08-21 19:57] LABS: POTASSIUM 4.6 mmol/L (3.5-5.1)
[2019-08-21 20:32] VITALS: BP 133/75; PULSE 72
[2019-08-21] MEDS ORDERED: morphine CARPU-JECT 4 MG/1 ML DISP.SYRIN IVPUSH ONE (21:06)
[2019-08-21] MEDS ORDERED: morphine SULFATE 4 MG/ML VIAL ONE (21:16)
--- NOTE | 2019-08-22 00:33 | CON.OBG ---
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 History of Present Illness: pt has pain on lt side , in flank & Llq, feels same like stones in past, accompanied by nausea , no vomiting she called her urologist Jesse was advised pain meds Extra strength Tylenol ,,if no relief go to ED urine symptoms small amont each time, she has to press down to urinate no burning or frequency of urination CT scan done in ED , reveals 1mm renal stone in upper pole of LtKidney , Lt adnexal cyst not seen in 04/2019 ctscan , hepatic steatosis, & Bilateral Inguinal hernia with fat . 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: Yes: Migraine, Other (CVA vs sensory migraine) Cardio/Vascular: Yes: HTN (h/o labile htn, no meds ), Other (denies MT) Pulmonary: Yes: Asthma (rx albuterol inhaler ) Gastrointestinal: No: Constipation, Gastritis, GERD Hepatobiliary: No: Cholelithiasis Renal/: Yes: Renal Calculi (h/o repeated renal colic attacks, twice ureteric stents were placed , no h/o lithotripsy ), UTI Reproductive: Yes: Fibroids (supracervical hys done by dr Santoyo at [facility] 1 yr ago), Postmenopausal (surgical menopause 10/2017 due to fibroids ), Other (sexually active ) ...: No ...: 3 (c/sections 2000, 2003, 2006) ...Para: 3 Heme/Onc: Yes: Anemia (h/o iv iron transfusions before hysterectomy) Infectious Disease: Yes: Other (declines h/o std ) Psych: Yes: Depression (no meds ) Musculoskeletal: Yes: Chronic low back pain Endocrine: Yes: Other (h/o prediabetes, no meds ) - Past Surgical History Past Surgical History: Yes: (2000, 2003, 2007.last c/section with btl , complication of wound infection ), Hernia Repair (umblical hernia repair 2006) , Hysterectomy (supracervical hys 10/2017 ) - Alcohol/Substance Use Hx Alcohol Use: No (occassinally socially on parties) History of Substance Use: reports: None - Smoking History Smoking history: Current every day smoker Have you smoked in the past 12 months: Yes Aproximately how many cigarettes per day: 5 (1 yr ago 1ppd) If you are a former smoker, when did you quit?: last week - Social History Usual Living Arrangement: With Spouse ADL: Independent History of Recent Travel: No Home Medications - Allergies Allergies/Adverse Reactions: Allergies Allergy/AdvReac Type Severity Reaction Status Date / Time levofloxacin [From Levaquin] Allergy Intermediate Rash Verified 08/21/19 18:57 - Home Medications Home Medications: Ambulatory Orders Oxycodone HCl/Acetaminophen [Percocet 5-325 mg Tablet] 1 tab PO Q6H #12 tablet MDD 4 08/22/19 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 No: Palpable Mass (lower left quadrant deep tenderness, no rebound tenderness, mild guarding), Tenderness, Epigastrium ...Rectal Exam: Yes: Deferred Renal/: Yes: CVA Tenderness - Left. No: Vaginal Bleeding, Vaginal Discharge Pelvis: Yes: Tenderness (left side llq) External Genitalia: Yes: Normal Vaginal Exam: Yes: Normal Cervix: Yes: Normal Uterus: Yes: Other (s/p supracervical hysterectomy) Adnexa: Normal: Right, Tender: Left, Not Palpable: Left (due to obesity ) Breast(s): Yes: Other (no checked) Extremities: No: Calf Tenderness Edema: No Integumentary: Yes: Incision (pfannensteil scar), Other (unable to determine inguinal hernia clinically) Neurological: Yes: WNL ...Motor Strength: WNL Psychiatric: Yes: WNL, Alert, Oriented Labs: CBC, BMP 08/21/19 19:00 08/21/19 19:00 Laboratory Tests 08/21/19 19:10 Urine Color Yellow Urine Appearance Clear Ur Specific Benton 1.024 Urine Protein Negative Urine Glucose (UA) Negative Urine Ketones Negative Urine Blood Negative Urine Nitrite Negative Urine Bilirubin Negative Urine Urobilinogen 0.2 Ur Leukocyte Esterase Negative Problem List - Problems (1) Left lower quadrant pain Code(s): R10.32 - LEFT LOWER QUADRANT PAIN (2) Left ovarian cyst Code(s): N83.202 - UNSPECIFIED OVARIAN CYST, LEFT SIDE (3) Left renal stone Code(s): N20.0 - CALCULUS OF KIDNEY (4) Bilateral inguinal hernia Code(s): K40.20 - BI INGUINAL HERNIA, W/O OBST OR GANGRENE, NOT SPCF RECUR Qualifiers: Obstruction and gangrene presence: without obstruction or gangrene (5) Obese Code(s): E66.9 - OBESITY, UNSPECIFIED Qualifiers: Obesity classification: adult class 2 (BMI 35 - 39.9) (6) S/P abdominal supracervical subtotal hysterectomy Code(s): Z90.711 - ACQUIRED ABSENCE OF UTERUS WITH REMAINING CERVICAL STUMP Assessment/Plan 44 yrs , s/p supracervical hysterectomy , obese , known h/o recurrent renal colic . presents with symptoms like lt side renal colick noted to have incidental finding of Left ovarian cyst on ct scan besides lt renal calculus & bilateral inguinal hernia . TVS confirms 5.6x4.7cm simple cyst of Lt Ovary I doubt ac onset of pain is due to ov cyst . no evidence of ovarian cyst torsion pt can be discharged with pain meds to follow with her Service Center Manager MD Dr Santoyo & Urologist Dr Mesa
--- NOTE | 2019-08-22 09:53 | EKG ---
Test Reason : Blood Pressure : / mmHG Vent. Rate : 075 BPM Atrial Rate : 075 BPM P-R Int : 174 ms QRS Dur : 076 ms QT Int : 408 ms P-R-T Axes : 013 001 028 degrees QTc Int : 455 ms NORMAL SINUS RHYTHM MODERATE VOLTAGE CRITERIA FOR LVH, MAY BE NORMAL VARIANT NONSPECIFIC T WAVE ABNORMALITY ABNORMAL ECG WHEN COMPARED WITH ECG OF 12-DEC-2018 15:20, NO SIGNIFICANT CHANGE WAS FOUND Confirmed by VANSEA MCKENZIE, ANGELA ([id number]) on 08/22/2019 9:53:12 AM Referred By: Confirmed By:ANGELA ALEXIS MD
== END 2019-08-22 00:56 | disposition home or self-care (01) ==
LOC: JER 18:21
DX: N83.202 Unspecified ovarian cyst, left side (principal); N20.0 Calculus of kidney; I10 Essential (primary) hypertension; J45.909 Unspecified asthma, uncomplicated; R73.03 Prediabetes; M54.5 Low back pain; G89.29 Other chronic pain; Z86.2 Personal history of diseases of the blood and blood-forming organs and certain disorders involving the immune mechanism; F32.9 Major depressive disorder, single episode, unspecified; F17.210 Nicotine dependence, cigarettes, uncomplicated; Z88.1 Allergy status to other antibiotic agents
CPT/HCPCS: 36415; 74176-TC; 76830-TC; 80053; 81003; 85025; 87086; 93005; 93010; 99283-25; J7030

== ENCOUNTER 2020-09-18 16:39 | Emergency (ER) | payer OTHER ==
[2020-09-18 16:54] VITALS: BMI 34.2
[2020-09-18] MEDS ORDERED: KETOROLAC TROMETHAMINE 15 MG/ML VIAL IVPUSH ONE (17:14)
[2020-09-18] MEDS ORDERED: SODIUM CHLORIDE 1,000 ML IV STA (17:14)
[2020-09-18] MEDS ORDERED: ACETAMINOPHEN 1000 MG/100 ML VIAL (NON FORMULARY) IVPB ONE (17:16)
[2020-09-18] MEDS ORDERED: ONDANSETRON 4 MG/2 ML VIAL IVPUSH ONE (17:31)
[2020-09-18] MEDS ORDERED: KETOROLAC TROMETHAMINE 15 MG/ML VIAL ONE (17:48)
[2020-09-18] MEDS ORDERED: ACETAMINOPHEN INJECTION 100 ML IVPB ONE (17:48)
[2020-09-18 18:37] LABS: BASO % 0.4 % (0-2.0); EOS % 0.8 % (0-4.5); HEMATOCRIT 40.3 % (32.4-45.2); HEMOGLOBIN 13.3 GM/dL (10.7-15.3); LYMPH % 18.1 % (8-40); MCH 27.2 pg (25.7-33.7); MEAN CELL VOLUME 82.4 fl (80-96); MEAN PLT VOLUME 8.2 fl (7.5-11.1); MONO % 4.4 % (3.8-10.2); NEUT % 76.3 % (42.8-82.8); PLATELET COUNT 213 K/MM3 (134-434); RBC 4.89 M/mm3 (3.60-5.2); RDW 14.9 % (11.6-15.6); WHITE BLOOD COUNT 9.7 K/mm3 (4.0-10.0)
[2020-09-18 18:38] LABS: PH,URINE 5.5 (5.0-8.0); URINE APPEARANCE CLEAR; URINE BILIRUBIN NEGATIVE (NEGATIVE); URINE COLOR YELLOW; URINE GLUCOSE (UA) NEGATIVE (NEGATIVE); URINE KETONE NEGATIVE (NEGATIVE); URINE LEUK ESTERASE NEGATIVE (NEGATIVE); URINE NITRITE NEGATIVE (NEGATIVE); URINE PROTEIN NEGATIVE (NEGATIVE); URINE UROBILINOGEN 0.2 mg/dL (0.2-1.0)
[2020-09-18 18:56] LABS: POTASSIUM 3.9 mmol/L (3.5-5.1)
[2020-09-18] MEDS ORDERED: morphine CARPU-JECT 2 MG/1 ML DISP.SYRIN IVPUSH ONE (18:58)
[2020-09-18 19:00] LABS: CALCIUM 8.9 mg/dL (8.5-10.1)
[2020-09-18 19:01] LABS: ALBUMIN 3.7 g/dl (3.4-5.0); BLOOD UREA NITROGEN 11.3 mg/dL (7-18)
[2020-09-18 19:04] LABS: CREATININE 0.8 mg/dL (0.55-1.3)
[2020-09-18 19:05] LABS: BILIRUBIN,TOTAL 0.3 mg/dL (0.2-1); TOT PROT 7.2 g/dl (6.4-8.2)
[2020-09-18] MEDS ORDERED: MORPHINE SULFATE 2 MG/ML VIAL IVPUSH ONE (19:11)
[2020-09-18] MEDS ORDERED: MORPHINE SULFATE 2 MG/ML VIAL ONE (19:12)
[2020-09-18 21:30] VITALS: BP 150/81; PULSE 67; TEMP 97.9
== END 2020-09-18 23:09 | disposition home or self-care (01) ==
LOC: JER 16:39
PROC: 3E0333Z Introduction of Anti-inflammatory into Peripheral Vein, Percutaneous Approach (ICD-10-PCS; principal; 2020-09-18)
PROC: 3E0333Z Introduction of Anti-inflammatory into Peripheral Vein, Percutaneous Approach (ICD-10-PCS; 2020-09-18)
PROC: 3E033NZ Introduction of Analgesics, Hypnotics, Sedatives into Peripheral Vein, Percutaneous Approach (ICD-10-PCS; 2020-09-18)
PROC: 3E0337Z Introduction of Electrolytic and Water Balance Substance into Peripheral Vein, Percutaneous Approach (ICD-10-PCS; 2020-09-18)
DX: N83.291 Other ovarian cyst, right side (principal)
CPT/HCPCS: 36415; 74176-TC; 76775; 76830-TC; 80053; 81003; 85025; 87086; 99285-25; J0131

== ENCOUNTER 2022-03-14 18:44 | Inpatient (IN) | payer OTHER ==
[2022-03-14 19:03] VITALS: BMI 33.6
[2022-03-14] MEDS ORDERED: SODIUM CHLORIDE 0.9% 500 ML INFUS.BAG IV ONE ×2 (19:39→21:13)
[2022-03-14] MEDS ORDERED: ONDANSETRON 4 MG/2 ML VIAL IVPUSH ONE (19:39)
[2022-03-14] MEDS ORDERED: ONDANSETRON 4 MG/2 ML VIAL ONE (19:52)
[2022-03-14] MEDS ORDERED: ACETAMINOPHEN 1000 MG/100 ML BAG IVPB ONE (19:54)
[2022-03-14] MEDS ORDERED: ACETAMINOPHEN INJECTION 100 ML IVPB ONE (19:56)
[2022-03-14 20:01] LABS: BASO % 0.5 % (0-2.0); HEMATOCRIT 39.7 % (32.4-45.2); HEMOGLOBIN 13.4 GM/dL (10.7-15.3); LYMPH % 18.4 % (8-40); MCH 28.3 pg (25.7-33.7); MCHC 33.8 g/dl (32.0-36.0); MEAN CELL VOLUME 83.8 fl (80-96); MEAN PLT VOLUME 7.4 fl (7.5-11.1); MONO % 4.6 % (3.8-10.2); NEUT % 75.5 % (42.8-82.8); PLATELET COUNT 242 10^3/uL (134-434); RBC 4.74 M/mm3 (3.60-5.2); RDW 15.1 % (11.6-15.6)
[2022-03-14 20:04] LABS: EPI CELLS 6 /uL (0-25.1); HYALINE CASTS 22 /uL (0-3.1); URINE APPEARANCE CLOUDY; URINE BACTERIA >9,000 /uL (0-1359); URINE BILIRUBIN NEGATIVE (NEGATIVE); URINE COLOR YELLOW; URINE GLUCOSE (UA) NEGATIVE (NEGATIVE); URINE KETONE NEGATIVE (NEGATIVE); URINE LEUK ESTERASE 2+ (NEGATIVE); URINE NITRITE POSITIVE (NEGATIVE); URINE PROTEIN TRACE (NEGATIVE); URINE RBC 241 /uL (0-23.9); URINE WBC 449 /uL (0-25.8)
[2022-03-14 20:16] LABS: URINE CRYSTALS NONE SEEN /hpf
[2022-03-14 20:22] LABS: CHLORIDE 109 mmol/L (98-107); SODIUM 141 mmol/L (136-145)
[2022-03-14 20:25] LABS: CALCIUM 9.1 mg/dL (8.5-10.1)
[2022-03-14 20:26] LABS: ALBUMIN 3.6 g/dl (3.4-5.0); ANION GAP 5 MMOL/L (8-16); BLOOD UREA NITROGEN 12.7 mg/dL (7-18); CO2 27 mmol/L (21-32); GLUCOSE,RANDOM 115 mg/dL (74-106)
[2022-03-14 20:28] LABS: CREATININE 0.7 mg/dL (0.55-1.3); SGOT/AST 19 U/L (15-37); SGPT/ALT 42 U/L (13-61)
[2022-03-14 20:31] LABS: BILIRUBIN,TOTAL 0.2 mg/dL (0.2-1)
[2022-03-14 20:32] LABS: ALK PHOS 74 U/L (45-117)
[2022-03-14] MEDS ORDERED: CEFTRIAXONE 1,000 MG in DEXTROSE 5%-WATER - 50 ML IVPB ONE (20:40)
[2022-03-14] MEDS ORDERED: CEFTRIAXONE 1 GM/50 ML BAG ONE (20:42)
[2022-03-14] MEDS ORDERED: ASPIRIN 325 MG TABLET PO ONE (21:06)
[2022-03-14] MEDS ORDERED: ASPIRIN 81 MG CHEWABLE TABLETS ONE (21:08)
[2022-03-14] MEDS ORDERED: LACTATED RINGERS SOLUTION 1000 ML INFUS.BAG IV ONE (21:13)
[2022-03-15] MEDS ORDERED: KETOROLAC TROMETHAMINE 15 MG/ML VIAL IM PRN ×3 (02:56→17:44)
[2022-03-15] MEDS ORDERED: SODIUM CHLORIDE 1,000 ML IV SCH (03:00)
[2022-03-15 06:52] LABS: BASO % 0.2 % (0-2.0); EOS % 1.1 % (0-4.5); HEMATOCRIT 38.4 % (32.4-45.2); HEMOGLOBIN 12.7 GM/dL (10.7-15.3); LYMPH % 15.3 % (8-40); MCH 27.8 pg (25.7-33.7); MEAN CELL VOLUME 84.3 fl (80-96); MEAN PLT VOLUME 7.8 fl (7.5-11.1); MONO % 4.1 % (3.8-10.2); NEUT % 79.3 % (42.8-82.8); PLATELET COUNT 217 10^3/uL (134-434); RBC 4.55 M/mm3 (3.60-5.2); RDW 15.6 % (11.6-15.6); WHITE BLOOD COUNT 10.1 K/mm3 (4.0-10.0)
[2022-03-15 06:58] LABS: INR 0.99 (0.83-1.09); PROTHROMBIN TIME (PATIENT) 11.4 SEC (9.7-13.0)
[2022-03-15 07:01] LABS: ACTIVATED PTT 29.7 SECONDS (25.2-36.5); CHLORIDE 107 mmol/L (98-107); SODIUM 139 mmol/L (136-145)
[2022-03-15 07:07] LABS: ANION GAP 6 MMOL/L (8-16); CALCIUM 8.3 mg/dL (8.5-10.1); CO2 27 mmol/L (21-32); MAGNESIUM 2.2 mg/dL (1.8-2.4)
[2022-03-15 07:09] LABS: ALBUMIN 3.3 g/dl (3.4-5.0); BLOOD UREA NITROGEN 8.2 mg/dL (7-18); GLUCOSE,RANDOM 108 mg/dL (74-106)
[2022-03-15 07:11] LABS: CREATININE 0.6 mg/dL (0.55-1.3); SGOT/AST 19 U/L (15-37); SGPT/ALT 39 U/L (13-61)
[2022-03-15 07:12] LABS: BILIRUBIN,TOTAL 0.6 mg/dL (0.2-1); CHOLESTEROL 201 mg/dL (50-200); LDL CHOLESTEROL (ONLY SJRH) 121 mg/dL (5-100); PHOSPHOROUS 2.6 mg/dL (2.5-4.9); TOT PROT 6.4 g/dl (6.4-8.2); TRIGLYCERIDES 255 mg/dL (0-150)
[2022-03-15 07:14] LABS: ALK PHOS 66 U/L (45-117); HDL CHOLESTEROL 45 mg/dL (40-60)
[2022-03-15] MEDS ORDERED: TAMSULOSIN HCL 0.4 MG CAP PO SCH (08:30)
[2022-03-15] MEDS ORDERED: ASPIRIN COATED 81 MG TABLET.EC PO SCH (10:00)
[2022-03-15] MEDS ORDERED: CEFTRIAXONE 1 GM in DEXTROSE 5%-WATER - 50 ML IVPB SCH (10:00)
[2022-03-15] MEDS ORDERED: PROPOFOL 20 ML ONE ×3 (15:23→16:07)
[2022-03-15] MEDS ORDERED: LIDOCAINE HCL/PF 2% SDV 5ML VIAL ONE (15:25)
[2022-03-15] MEDS ORDERED: FENTANYL CITRATE/PF 50 MCG/ML VIAL ONE ×2 (15:26→15:51)
[2022-03-15] MEDS ORDERED: MIDAZOLAM HCL 2 MG/2 ML SINGLE DOSE VIAL ONE (15:26)
[2022-03-15] MEDS ORDERED: DEXAMETHASONE SOD PHOSPHATE 4 MG/1 ML VIAL ONE (15:50)
[2022-03-15] MEDS ORDERED: ceFAZolin SODIUM 1 GM VIAL ONE (15:58)
[2022-03-15] MEDS ORDERED: ceFAZolin SODIUM 1 GM VIAL IVPB ONE (15:58)
[2022-03-15] MEDS ORDERED: KETOROLAC TROMETHAMINE 30 MG/1 ML VIAL ONE (16:01)
[2022-03-15] MEDS ORDERED: LACTATED RINGERS SOLUTION 1,000 ML IV SCH (17:15)
[2022-03-15] MEDS ORDERED: LACTATED RINGERS SOLUTION 1,000 ML/1,000 ML INFUS.BAG IV SCH (19:15)
[2022-03-15] MEDS: oxyCODONE HCL 5 MG TABLET PO PRN (19:57)
[2022-03-16] MEDS: oxyCODONE HCL 5 MG TABLET PO PRN ×2 (05:37→21:24)
[2022-03-16] MEDS ORDERED: TAMSULOSIN HCL 0.4 MG CAP PO SCH (08:30)
[2022-03-16 09:09] LABS: BASO % 0.2 % (0-2.0); EOS % 0.1 % (0-4.5); HEMOGLOBIN 12.8 GM/dL (10.7-15.3); LYMPH % 11.5 % (8-40); MCH 28.8 pg (25.7-33.7); MCHC 34.7 g/dl (32.0-36.0); MEAN PLT VOLUME 7.9 fl (7.5-11.1); MONO % 3.6 % (3.8-10.2); NEUT % 84.6 % (42.8-82.8); PLATELET COUNT 228 10^3/uL (134-434); RBC 4.45 M/mm3 (3.60-5.2); RDW 14.7 % (11.6-15.6); WHITE BLOOD COUNT 10.9 K/mm3 (4.0-10.0)
[2022-03-16 09:44] LABS: ALBUMIN 3.1 g/dl (3.4-5.0)
[2022-03-16 09:47] LABS: BLOOD UREA NITROGEN 9.4 mg/dL (7-18)
[2022-03-16 09:50] LABS: BILIRUBIN,TOTAL 0.3 mg/dL (0.2-1); TOT PROT 6.2 g/dl (6.4-8.2)
[2022-03-16 09:55] LABS: PHOSPHOROUS 2.5 mg/dL (2.5-4.9)
[2022-03-16 09:58] LABS: CALCIUM 8.8 mg/dL (8.5-10.1); MAGNESIUM 2.1 mg/dL (1.8-2.4)
[2022-03-16 10:00] LABS: CREATININE 0.6 mg/dL (0.55-1.3)
[2022-03-16] MEDS ORDERED: CEFTRIAXONE 1 GM in DEXTROSE 5%-WATER - 50 ML IVPB SCH (10:00)
[2022-03-16] MEDS ORDERED: cefTRIAXone SODIUM 1 GM VIAL ONE (10:03)
[2022-03-16] MEDS ORDERED: DEXTROSE 5%-WATER - 50 ML IVPB ONE (10:03)
[2022-03-16] MEDS: TAMSULOSIN HCL 0.4 MG CAP PO SCH (10:04)
[2022-03-16] MEDS: CEFTRIAXONE 1 GM in DEXTROSE 5%-WATER - 50 ML IVPB SCH (10:05)
[2022-03-16] MEDS: ENOXAPARIN NA (PORCINE) 40 MG/0.4 ML DISP.SYRIN SQ SCH (21:24)
[2022-03-17] MEDS: TAMSULOSIN HCL 0.4 MG CAP PO SCH (08:31)
[2022-03-17 09:09] LABS: BASO % 0.5 % (0-2.0); EOS % 1.7 % (0-4.5); HEMOGLOBIN 12.9 GM/dL (10.7-15.3); MCH 27.9 pg (25.7-33.7); MCHC 33.1 g/dl (32.0-36.0); MEAN CELL VOLUME 84.4 fl (80-96); MEAN PLT VOLUME 7.9 fl (7.5-11.1); MONO % 4.7 % (3.8-10.2); NEUT % 74.1 % (42.8-82.8); PLATELET COUNT 224 10^3/uL (134-434); RBC 4.62 M/mm3 (3.60-5.2); RDW 15.1 % (11.6-15.6); WHITE BLOOD COUNT 9.1 K/mm3 (4.0-10.0)
[2022-03-17] MEDS ORDERED: cefTRIAXone SODIUM 1 GM VIAL ONE ×2 (09:17→09:30)
[2022-03-17] MEDS ORDERED: DEXTROSE 5%-WATER - 50 ML IVPB ONE ×2 (09:17→09:30)
[2022-03-17] MEDS: ENOXAPARIN NA (PORCINE) 40 MG/0.4 ML DISP.SYRIN SQ SCH (09:42)
[2022-03-17 10:41] LABS: BLOOD UREA NITROGEN 7.9 mg/dL (7-18)
[2022-03-17 10:43] LABS: CREATININE 0.8 mg/dL (0.55-1.3); PHOSPHOROUS 2.8 mg/dL (2.5-4.9)
[2022-03-17] MEDS: CEFTRIAXONE 1 GM in DEXTROSE 5%-WATER - 50 ML IVPB SCH (10:44)
[2022-03-17 10:45] LABS: BILIRUBIN,TOTAL 0.3 mg/dL (0.2-1); TOT PROT 6.7 g/dl (6.4-8.2)
[2022-03-17 10:46] LABS: CALCIUM 8.7 mg/dL (8.5-10.1); MAGNESIUM 2.1 mg/dL (1.8-2.4)
[2022-03-17 10:47] LABS: ALBUMIN 3.4 g/dl (3.4-5.0)
[2022-03-17] MEDS: oxyCODONE HCL 5 MG TABLET PO PRN (12:32)
[2022-03-17] MEDS ORDERED: amLODIPine BESYLATE 5 MG TABLET (FP) PO ONE ×2 (14:20→16:12)
[2022-03-17 14:26] VITALS: PULSE 97; TEMP 98.6
[2022-03-17 16:40] VITALS: BP 159/94
== END 2022-03-17 16:41 | disposition home or self-care (01) | DRG 463 ==
LOC: JER 18:44 → JERBED 03-15 02:30 → J6S 03-15 17:32
PROVIDERS: ADMIT Hospitalist; ATTEND Internal Medicine
PROC: 0T9B80Z Drainage of Bladder with Drainage Device, Via Natural or Artificial Opening Endoscopic (ICD-10-PCS; 2022-03-15)
PROC: 0T778DZ Dilation of Left Ureter with Intraluminal Device, Via Natural or Artificial Opening Endoscopic (ICD-10-PCS; principal; 2022-03-15 15:00)
PROC: 0TJB8ZZ Inspection of Bladder, Via Natural or Artificial Opening Endoscopic (ICD-10-PCS; 2022-03-15 15:00)
DX: N13.6 Pyonephrosis (principal); I10 Essential (primary) hypertension; E78.5 Hyperlipidemia, unspecified; G43.909 Migraine, unspecified, not intractable, without status migrainosus; R11.2 Nausea with vomiting, unspecified; N39.0 Urinary tract infection, site not specified; J45.909 Unspecified asthma, uncomplicated; F32.A Depression, unspecified; M54.50 Low back pain, unspecified; F17.210 Nicotine dependence, cigarettes, uncomplicated; R73.03 Prediabetes; K59.00 Constipation, unspecified; R07.89 Other chest pain
CPT/HCPCS: 36415; 71046-TC-FY; 74177-TC; 76000-TC-FY; 80053; 80061; 81003; 83036; 83735; 84100; 84484; 84703; 85025; 85610; 85730; 86850; 86900; 86901; 87040; 87086; 87186; 93005; 93010; 94760; 99285-25; C9803-CS; Q9967; U0003; U0005

== ENCOUNTER 2022-04-01 04:10 | Day surgery (SDC) | payer OTHER ==
[2022-03-26 15:45] VITALS: BMI 35.9
[2022-04-01] MEDS ORDERED: FENTANYL CITRATE/PF 50 MCG/ML VIAL ONE ×2 (14:12→14:41)
[2022-04-01] MEDS ORDERED: MIDAZOLAM HCL 2 MG/2 ML SINGLE DOSE VIAL ONE (14:12)
[2022-04-01] MEDS ORDERED: PROPOFOL 20 ML ONE ×3 (14:12→14:59)
[2022-04-01] MEDS ORDERED: ceFAZolin SODIUM 1 GM VIAL ONE (14:16)
[2022-04-01] MEDS ORDERED: LIDOCAINE HCL/PF 2% SDV 5ML VIAL ONE (14:16)
[2022-04-01] MEDS ORDERED: ceFAZolin SODIUM 1 GM VIAL IVPB ONE (14:20)
[2022-04-01] MEDS ORDERED: PROMETHAZINE HCL 25 MG/1 ML VIAL IVPB PRN (14:25)
[2022-04-01] MEDS ORDERED: DEXAMETHASONE SOD PHOSPHATE 4 MG/1 ML VIAL ONE (14:28)
[2022-04-01] MEDS ORDERED: LACTATED RINGERS SOLUTION 1,000 ML IV SCH (14:30)
[2022-04-01] MEDS ORDERED: SUCCINYLCHOLINE CHLORIDE 200 MG/10 ML SYRINGE ONE ×2 (14:30→15:00)
[2022-04-01] MEDS ORDERED: IOHEXOL 300 MG/ML INFUS..BTL IV ONE (14:51)
[2022-04-01] MEDS ORDERED: oxyCODONE HCL 5 MG TABLET PO PRN (15:04)
[2022-04-01] MEDS ORDERED: DEXTROSE 5%-0.45% SALINE 1,000 ML IV SCH (15:15)
[2022-04-01] MEDS ORDERED: ALBUTEROL SO4 0.083% IH SOL 2.5 MG/3 ML VIAL.NEB. NEB ONE (15:38)
[2022-04-01] MEDS ORDERED: ALBUTEROL SO4 0.083% IH SOL 2.5 MG/3 ML VIAL.NEB. NEB PRN (15:42)
[2022-04-01 16:25] VITALS: TEMP 97.9
[2022-04-01] MEDS ORDERED: oxyCODONE HCL 5 MG TABLET ONE (16:55)
[2022-04-01 18:44] VITALS: BP 127/70; PULSE 89
== END 2022-04-01 17:35 | disposition home or self-care (01) ==
LOC: JASU-SURG 04:10
PROVIDERS: ATTEND Urology
PROC: 0TC78ZZ Extirpation of Matter from Left Ureter, Via Natural or Artificial Opening Endoscopic (ICD-10-PCS; principal; 2022-04-01 12:00)
PROC: 0T778DZ Dilation of Left Ureter with Intraluminal Device, Via Natural or Artificial Opening Endoscopic (ICD-10-PCS; 2022-04-01 12:00)
DX: N20.1 Calculus of ureter (principal)
CPT/HCPCS: 36415; 76000-TC-FY; 82360; 88300-TC; 94760

== ENCOUNTER 2022-08-25 13:22 | Emergency (ER) | payer OTHER ==
[2022-08-25 13:32] VITALS: RESP 19; TEMP 98.6; BMI 35.9
[2022-08-25] MEDS ORDERED: METOCLOPRAMIDE HCL INJECTION 10 MG/2 ML VIAL IVPB ONE (14:30)
[2022-08-25] MEDS ORDERED: ACETAMINOPHEN 1000 MG/100 ML BAG IVPB ONE (14:30)
[2022-08-25] MEDS ORDERED: LACTATED RINGERS SOLUTION 1000 ML INFUS.BAG IV ONE (14:30)
[2022-08-25] MEDS ORDERED: KETOROLAC TROMETHAMINE 15 MG/ML VIAL IVPUSH ONE (14:30)
[2022-08-25] MEDS ORDERED: METHOCARBAMOL 500 MG TABLET PO ONE (14:44)
[2022-08-25] MEDS ORDERED: METHOCARBAMOL 500 MG TABLET ONE (15:34)
[2022-08-25] MEDS ORDERED: METOCLOPRAMIDE HCL INJECTION 10 MG/2 ML VIAL ONE (15:34)
[2022-08-25] MEDS ORDERED: ACETAMINOPHEN INJECTION 100 ML IVPB ONE (15:34)
[2022-08-25] MEDS ORDERED: KETOROLAC TROMETHAMINE 15 MG/ML VIAL ONE (15:35)
[2022-08-25 15:42] LABS: EPI CELLS 21 /uL (0-25.1); HYALINE CASTS 6 /uL (0-3.1); URINE APPEARANCE CLEAR; URINE BACTERIA 3403 /uL (0-1359); URINE BILIRUBIN NEGATIVE (NEGATIVE); URINE COLOR YELLOW; URINE GLUCOSE (UA) NEGATIVE (NEGATIVE); URINE KETONE TRACE (NEGATIVE); URINE LEUK ESTERASE 1+ (NEGATIVE); URINE NITRITE POSITIVE (NEGATIVE); URINE PROTEIN TRACE (NEGATIVE); URINE RBC 12 /uL (0-23.9); URINE UROBILINOGEN 0.2 mg/dL (0.2-1.0); URINE WBC 300 /uL (0-25.8)
[2022-08-25 15:44] LABS: BASO % 0.6 % (0-2.0); EOS % 1.3 % (0-4.5); HEMATOCRIT 41.2 % (32.4-45.2); LYMPH % 18.3 % (8-40); MCH 28.3 pg (25.7-33.7); MEAN CELL VOLUME 83.4 fl (80-96); MEAN PLT VOLUME 7.2 fl (7.5-11.1); MONO % 3.5 % (3.8-10.2); NEUT % 76.3 % (42.8-82.8); PLATELET COUNT 281 10^3/uL (134-434); RBC 4.94 M/mm3 (3.60-5.2); RDW 14.9 % (11.6-15.6); WHITE BLOOD COUNT 9.9 K/mm3 (4.0-10.0)
[2022-08-25 15:51] LABS: INR 1.01 (0.83-1.09); PROTHROMBIN TIME (PATIENT) 11.6 SEC (9.7-13.0)
[2022-08-25 15:53] LABS: ACTIVATED PTT 32.9 SECONDS (25.2-36.5)
[2022-08-25] MEDS ORDERED: CEFTRIAXONE 1 GM in DEXTROSE 5%-WATER - 100 ML IVPB ONE (15:59)
[2022-08-25 16:11] LABS: BLOOD UREA NITROGEN 13.9 mg/dL (7-18); CALCIUM 9.5 mg/dL (8.5-10.1)
[2022-08-25 16:15] LABS: CREATININE 0.7 mg/dL (0.55-1.3)
[2022-08-25 16:16] LABS: BILIRUBIN,TOTAL 0.3 mg/dL (0.2-1); TOT PROT 7.9 g/dl (6.4-8.2)
[2022-08-25 16:56] VITALS: BP 136/82; PULSE 78
[2022-08-25 17:11] LABS: CALCIUM 9.1 mg/dL (8.5-10.1)
[2022-08-25 17:12] LABS: BLOOD UREA NITROGEN 13.2 mg/dL (7-18)
[2022-08-25 17:15] LABS: CREATININE 0.6 mg/dL (0.55-1.3)
== END 2022-08-25 17:44 | disposition home or self-care (01) ==
LOC: JER 13:22
PROC: 3E033GC Introduction of Other Therapeutic Substance into Peripheral Vein, Percutaneous Approach (ICD-10-PCS; principal; 2022-08-25)
DX: N39.0 Urinary tract infection, site not specified (principal); R42 Dizziness and giddiness; R11.2 Nausea with vomiting, unspecified; G43.909 Migraine, unspecified, not intractable, without status migrainosus
CPT/HCPCS: 36415; 74176-TC; 80048; 80053; 81003; 85025; 85610; 85730; 86850; 86900; 86901; 87086; 87186; 99285-25